=== PATIENT | female | born 1955 | race Two or more races ===

== ENCOUNTER 2022-07-07 11:42 | Emergency (ER) | payer OTHER, MEDICAID ==
[~2022-07-07] VITALS: Ht 157.5 cm; Wt 74.1 kg
[2022-07-07] MEDS ORDERED: DexAMETHasone SOD PHOS 10MG/1ML VIAL INJ IV ONE (12:00)
[2022-07-07] MEDS ORDERED: LEVALBUTEROL HCL 1.25 MG/3 ML NEB NEB SCH (12:00)
[2022-07-07 12:11] LABS: Basophils # (auto) 0.1 10 ^3/uL (0-0.2); Basophils % (auto) 0.9 % (0.0-2.0); Eosinophils # (auto) 0.4 10 ^3/uL (0-0.8); Eosinophils % (auto) 6.3 % (0.0-7.0); Hematocrit 35.8 % (36.0-46.0); Hemoglobin 12.1 g/dL (12.2-16.2); Lymphocytes # (auto) 1.6 10 ^3/uL (0.4-5.4); Lymphocytes % (auto) 28.4 % (10.0-50.0); Mean Corpuscular Hemoglobin 30.5 pg (28.0-32.0); Mean Corpuscular Hgb Conc. 33.7 g/dL (32.0-36.0); Mean Corpuscular Volume 90.4 fL (80.0-100.0); Monocytes # (auto) 0.4 10 ^3/uL (0-1.3); Monocytes % (auto) 6.3 % (0.0-12.0); Neutrophils # (auto) 3.3 10 ^3/uL (1.6-8.6); Neutrophils % (auto) 58.1 % (37.0-80.0); Red Blood Cells 3.96 10^6/uL (4.0-5.20); Red Cell Distribution Width 13.4 % (11.8-14.3); White Blood Cell 5.7 10^3/uL (4.4-10.8)
[2022-07-07 12:41] LABS: Albumin 4.1 g/dL (3.4-5.0); Calcium 9.7 mg/dL (8.5-10.1)
[2022-07-07 12:48] LABS: BUN/Creatinine Ratio 18.9; Bilirubin, Total 0.3 mg/dL (0.2-1.0)
[2022-07-07] MEDS ORDERED: FUROSEMIDE 40 MG/4 ML VIAL IV ONE (13:00)
[2022-07-07] MEDS ORDERED: BUMEX2MG PO (16:39)
[2022-07-07 18:30] VITALS: BP 123/57
[2022-07-07] MEDS ORDERED: FUROSEMIDE 20 MG TAB PO ONE (18:45)
== END 2022-07-07 18:53 | disposition home or self-care (01) ==
LOC: ER 11:42
DX: I50.9 Heart failure, unspecified (principal); J44.9 Chronic obstructive pulmonary disease, unspecified; E11.9 Type 2 diabetes mellitus without complications; Z20.822 Contact with and (suspected) exposure to COVID-19
CPT/HCPCS: 36415; 71045; 80053; 83605; 83880; 84484; 85025; 85379; 87040; 87426; 87804; 93005

== ENCOUNTER → 2022-07-12 | Outpatient (CLI) | payer OTHER, MEDICAID ==
[~2022-07-12] MED LIST: BUMEX2MG PO
[2022-07-12 16:45] LABS: Anion Gap 5 (5-15); BUN/Creatinine Ratio 25.1; Blood Urea Nitrogen 43 mg/dL (7-18); Calcium 9.7 mg/dL (8.5-10.1); Carbon Dioxide 23 mmol/L (21-32); Chloride 110 mmol/L (98-107); GFR African American 38 mL/min; GFR Non-African American 32 mL/min; Glucose 130 mg/dL (74-106); Sodium 138 mmol/L (136-145)
== END | disposition home or self-care (01) ==
LOC: LAB 16:02
PROVIDERS: ATTEND Internal Medicine
DX: I50.22 Chronic systolic (congestive) heart failure (principal)
CPT/HCPCS: 36415; 80048

== ENCOUNTER → 2022-07-28 | Outpatient (CLI) | payer OTHER, MEDICAID ==
[2022-07-28 10:40] LABS: BUN/Creatinine Ratio 20.3 (10.0-20.0); Calcium 9.4 mg/dL (8.5-10.1); Potassium 3.7 mmol/L (3.5-5.1)
== END | disposition home or self-care (01) ==
LOC: LAB 08:45
PROVIDERS: ATTEND Internal Medicine
DX: E11.22 Type 2 diabetes mellitus with diabetic chronic kidney disease (principal); N18.4 Chronic kidney disease, stage 4 (severe)
CPT/HCPCS: 36415; 80048

== ENCOUNTER → 2022-09-22 | Outpatient (CLI) | payer OTHER, MEDICAID ==
[~2022-09-22] MED LIST changes: +ALBUTEROL SULF 2.5 MG/0.5ML(0.5%) NEB SOLN ONE; +LEVALBUTEROL HCL 1.25 MG/3 ML NEB ONE
== END | disposition home or self-care (01) ==
LOC: RT 11:46
PROVIDERS: ATTEND Internal Medicine Pulmonary Disease
DX: J45.40 Moderate persistent asthma, uncomplicated (principal); R06.00 Dyspnea, unspecified; R06.09 Other forms of dyspnea
CPT/HCPCS: 94060; 94727; 94729; J7612

== ENCOUNTER → 2022-09-24 | Outpatient (CLI) | payer OTHER, MEDICAID ==
[~2022-09-24] MED LIST changes: -ALBUTEROL SULF 2.5 MG/0.5ML(0.5%) NEB SOLN ONE; -LEVALBUTEROL HCL 1.25 MG/3 ML NEB ONE
[2022-09-24 11:58] LABS: BUN/Creatinine Ratio 20.3 (10.0-20.0); Calcium 9.4 mg/dL (8.5-10.1); Potassium 4.1 mmol/L (3.5-5.1)
== END | disposition home or self-care (01) ==
LOC: LAB 09:53
DX: I13.0 Hypertensive heart and chronic kidney disease with heart failure and stage 1 through stage 4 chronic kidney disease, or unspecified chronic kidney disease (principal); I50.9 Heart failure, unspecified; N18.4 Chronic kidney disease, stage 4 (severe)
CPT/HCPCS: 36415; 80048

== ENCOUNTER → 2022-10-27 | Outpatient (CLI) | payer OTHER, MEDICAID ==
[2022-10-27 11:02] LABS: Basophils # (auto) 0 10 ^3/uL (0-0.2); Basophils % (auto) 0.7 % (0.0-2.0); Eosinophils # (auto) 0.2 10 ^3/uL (0-0.8); Eosinophils % (auto) 4.3 % (0.0-7.0); Hematocrit 37.4 % (36.0-46.0); Hemoglobin 12.5 g/dL (12.2-16.2); Lymphocytes # (auto) 1.8 10 ^3/uL (0.4-5.4); Lymphocytes % (auto) 34.5 % (10.0-50.0); Mean Corpuscular Hemoglobin 29.3 pg (28.0-32.0); Mean Corpuscular Hgb Conc. 33.4 g/dL (32.0-36.0); Mean Corpuscular Volume 87.5 fL (80.0-100.0); Monocytes # (auto) 0.4 10 ^3/uL (0-1.3); Monocytes % (auto) 8.3 % (0.0-12.0); Neutrophils # (auto) 2.7 10 ^3/uL (1.6-8.6); Neutrophils % (auto) 52.2 % (37.0-80.0); Nucleated Red Blood Cells % 0.1 %; Red Blood Cells 4.28 10^6/uL (4.0-5.20); Red Cell Distribution Width 13.2 % (11.8-14.3); White Blood Cell 5.1 10^3/uL (4.4-10.8)
[2022-10-27 11:31] LABS: Albumin 4.1 g/dL (3.4-5.0); BUN/Creatinine Ratio 22.4 (10.0-20.0); Bilirubin, Total 0.3 mg/dL (0.2-1.0); Calcium 9.4 mg/dL (8.5-10.1); Total Protein 7.5 g/dL (6.4-8.2)
== END | disposition home or self-care (01) ==
LOC: LAB 10:37
PROVIDERS: ATTEND Internal Medicine
DX: I13.0 Hypertensive heart and chronic kidney disease with heart failure and stage 1 through stage 4 chronic kidney disease, or unspecified chronic kidney disease (principal); E11.22 Type 2 diabetes mellitus with diabetic chronic kidney disease; I50.32 Chronic diastolic (congestive) heart failure; N18.32 Chronic kidney disease, stage 3b
CPT/HCPCS: 36415; 80053; 85025

== ENCOUNTER 2022-12-05 08:43 | Emergency (ER) | payer OTHER, MEDICAID ==
[~2022-12-05] VITALS: Ht 157.5 cm; Wt 68.0 kg
[2022-12-05] MEDS ORDERED: KETOROLAC TROMETH 60MG/2ML VIAL IM ONE (11:00)
[2022-12-05 12:40] VITALS: BP 126/57; PULSE 88; RESP 18; TEMP 98.5; O2SAT 99
== END 2022-12-05 12:43 | disposition home or self-care (01) ==
LOC: ER 08:43
DX: M54.31 Sciatica, right side (principal); E11.9 Type 2 diabetes mellitus without complications; E78.5 Hyperlipidemia, unspecified; Z88.5 Allergy status to narcotic agent; Z88.0 Allergy status to penicillin; Z88.2 Allergy status to sulfonamides; Z88.4 Allergy status to anesthetic agent; Z91.012 Allergy to eggs; J45.909 Unspecified asthma, uncomplicated; Z98.890 Other specified postprocedural states
CPT/HCPCS: 72131; 93005; 93971; 96372; 99285; J1885

== ENCOUNTER 2022-12-20 09:19 | Inpatient (IN) | payer OTHER, MEDICAID ==
[~2022-12-20] VITALS: Ht 165.1 cm; Wt 71.4 kg
[2022-12-20] MEDS ORDERED: SODIUM CHLORIDE 0.9% 1,000 ML IV ONE (09:45)
[2022-12-20 10:33] LABS: Basophils # (auto) 0 10 ^3/uL (0-0.2); Basophils % (auto) 0.7 % (0.0-2.0); Eosinophils # (auto) 0.2 10 ^3/uL (0-0.8); Eosinophils % (auto) 3.3 % (0.0-7.0); Hematocrit 35.4 % (36.0-46.0); Hemoglobin 11.6 g/dL (12.2-16.2); Lymphocytes # (auto) 1.6 10 ^3/uL (0.4-5.4); Mean Corpuscular Hemoglobin 29.3 pg (28.0-32.0); Mean Corpuscular Hgb Conc. 32.9 g/dL (32.0-36.0); Mean Corpuscular Volume 88.9 fL (80.0-100.0); Monocytes # (auto) 0.4 10 ^3/uL (0-1.3); Monocytes % (auto) 7.8 % (0.0-12.0); Neutrophils # (auto) 2.8 10 ^3/uL (1.6-8.6); Neutrophils % (auto) 56.2 % (37.0-80.0); Red Blood Cells 3.98 10^6/uL (4.0-5.20); Red Cell Distribution Width 13.9 % (11.8-14.3)
[2022-12-20 11:53] LABS: Albumin 3.6 g/dL (3.4-5.0); BUN/Creatinine Ratio 16.1 (10.0-20.0); Calcium 9.6 mg/dL (8.5-10.1); Potassium 4.2 mmol/L (3.5-5.1)
[2022-12-20 12:13] LABS: Bilirubin, Total 0.2 mg/dL (0.2-1.0); Total Protein 6.7 g/dL (6.4-8.2)
[2022-12-20] MEDS ORDERED: GABAPENTIN 300 MG CAP PO ONE (13:30)
[2022-12-20] MEDS ORDERED: ACETAMINOPHEN 500 MG TAB PO ONE (13:30)
[2022-12-20] MEDS ORDERED: PANCREATIC ENZYMES 4200 UNIT CAP PO ONE (13:30)
[2022-12-20] MEDS ORDERED: ENOXAPARIN SOD 80 MG/0.8ML SYRINGE SC ONE (14:15)
[2022-12-20 15:15] LABS: Urine Bacteria NONE SEEN /hpf (None Seen); Urine Blood Negative /uL (Negative); Urine Clarity Clear (Clear); Urine Color Colorless (Yellow); Urine Protein, UAD Negative (Negative); Urine Specific Gravity 1.007 (1.001-1.035); Urine Urobilinogen Normal (Negative); Urine WBC <1 /hpf (0 - 5)
[2022-12-20] MEDS ORDERED: HYDROcodone-ACET 5/325MG TAB PO PRN (16:00)
[2022-12-20] MEDS ORDERED: DOCUSATE SOD 100 MG CAP PO PRN (16:00)
[2022-12-20] MEDS ORDERED: NITROGLYCERIN 0.4 MG SL TAB SL PRN (16:00)
[2022-12-20] MEDS ORDERED: ONDANSETRON HCL 4 MG/2 ML VIAL IV PRN (16:00)
[2022-12-20] MEDS ORDERED: MORPHINE SULFATE INJ 2 MG/ml SYRG IV PRN (16:00)
[2022-12-20] MEDS ORDERED: FENO134C19 PO (16:07)
[2022-12-20] MEDS ORDERED: TORS20TA19 PO (16:07)
[2022-12-20] MEDS ORDERED: ATOG60TA PO (16:07)
[2022-12-20] MEDS ORDERED: FOLI-119 PO (16:07)
[2022-12-20] MEDS ORDERED: VENL150C58 PO (16:07)
[2022-12-20] MEDS ORDERED: HYDR200T36 PO (16:07)
[2022-12-20] MEDS ORDERED: DONE5TAB80 PO (16:07)
[2022-12-20] MEDS ORDERED: MONT-8 PO (16:07)
[2022-12-20] MEDS ORDERED: LEVE500T3 PO (16:07)
[2022-12-20] MEDS ORDERED: FEBU40TA3 PO (16:07)
[2022-12-20] MEDS ORDERED: PANC3600 PO (16:07)
[2022-12-20 18:00] VITALS: PULSE 78; RESP 18; O2SAT 97
[2022-12-20] MEDS: PANCREATIC ENZYMES 4200 UNIT CAP PO SCH (18:00)
[2022-12-20 19:24] VITALS: PULSE 79; RESP 14; O2SAT 95
[2022-12-20] MEDS ORDERED: DEXTROSE (50%) 50ML SYRG IV PRN (19:45)
[2022-12-20] MEDS ORDERED: ALBUTEROL SULF 2.5 MG/0.5ML(0.5%) NEB SOLN NEB PRN (21:15)
[2022-12-20] MEDS ORDERED: IPRATROPIUM BROM 0.5 MG/2.5ML INH SOL NEB PRN (21:15)
[2022-12-20 21:44] VITALS: BP 113/44; PULSE 79; RESP 14; TEMP 97.5; O2SAT 95
[2022-12-20] MEDS ORDERED: InsuLIN REG 1unit/0.01ml Soln (100units/ml) SC SCH (22:00)
[2022-12-20 22:10] VITALS: O2SAT 95
[2022-12-20] MEDS: SODIUM CHLOR 0.9% PF (SALINE LOCK) 10ML VIAL/SYR IV SCH (22:21)
[2022-12-20] MEDS: ACCU-CHEK COMFORT CURVE STRIP VI SCH (22:25)
[2022-12-20] MEDS: levETIRAcetam 500 MG TAB PO SCH (22:31)
[2022-12-21] MEDS: ACETAMINOPHEN 325 MG TAB PO PRN ×2 (01:12→11:07)
[2022-12-21] MEDS ORDERED: GABAPENTIN 300 MG CAP PO ONE (01:45)
[2022-12-21 05:57] LABS: Basophils # (auto) 0 10 ^3/uL (0-0.2); Basophils % (auto) 0.8 % (0.0-2.0); Eosinophils # (auto) 0.2 10 ^3/uL (0-0.8); Eosinophils % (auto) 3.6 % (0.0-7.0); Hematocrit 34.9 % (36.0-46.0); Hemoglobin 11.4 g/dL (12.2-16.2); Lymphocytes # (auto) 1.2 10 ^3/uL (0.4-5.4); Lymphocytes % (auto) 23.3 % (10.0-50.0); Mean Corpuscular Hemoglobin 29.4 pg (28.0-32.0); Mean Corpuscular Hgb Conc. 32.7 g/dL (32.0-36.0); Mean Corpuscular Volume 89.9 fL (80.0-100.0); Monocytes # (auto) 0.4 10 ^3/uL (0-1.3); Monocytes % (auto) 7.6 % (0.0-12.0); Neutrophils # (auto) 3.4 10 ^3/uL (1.6-8.6); Neutrophils % (auto) 64.7 % (37.0-80.0); Nucleated Red Blood Cells % 0.1 %; Red Blood Cells 3.88 10^6/uL (4.0-5.20); White Blood Cell 5.3 10^3/uL (4.4-10.8)
[2022-12-21 06:18] LABS: Albumin 3.3 g/dL (3.4-5.0); BUN/Creatinine Ratio 16.2 (10.0-20.0); Calcium 8.9 mg/dL (8.5-10.1)
[2022-12-21 06:24] LABS: Bilirubin, Total 0.3 mg/dL (0.2-1.0); Total Protein 6.2 g/dL (6.4-8.2)
[2022-12-21] MEDS: SODIUM CHLOR 0.9% PF (SALINE LOCK) 10ML VIAL/SYR IV SCH ×2 (06:29→14:00)
[2022-12-21] MEDS: ACCU-CHEK COMFORT CURVE STRIP VI SCH ×2 (06:33→11:30)
[2022-12-21] MEDS: InsuLIN REG 1unit/0.01ml Soln (100units/ml) SC SCH ×2 (07:00→11:30)
[2022-12-21 07:20] VITALS: PULSE 84; RESP 12; O2SAT 98
[2022-12-21 08:56] VITALS: BP 138/62; PULSE 79; RESP 20; TEMP 98.1; O2SAT 99
[2022-12-21 09:00] VITALS: BP 138/62; PULSE 76; RESP 18; TEMP 98.1; O2SAT 97; O2SAT 98
[2022-12-21] MEDS ORDERED: ADENOSINE 61 MG in GIVE UN-DILUTED 0 ML IV STA ×2 (09:05→11:55)
[2022-12-21 10:00] VITALS: O2SAT 98
[2022-12-21] MEDS ORDERED: hydrOXYchloroQUINE SULFATE 200 MG TAB PO SCH (10:00)
[2022-12-21] MEDS ORDERED: FOLIC ACID 1 MG TAB PO SCH (10:00)
[2022-12-21] MEDS: levETIRAcetam 500 MG TAB PO SCH ×2 (10:00→11:07)
[2022-12-21] MEDS ORDERED: TORSEMIDE 20 MG TAB PO SCH (10:00)
[2022-12-21] MEDS ORDERED: VENLAFAXINE HCL 37.5mg XR cap PO SCH (10:00)
[2022-12-21] MEDS ORDERED: MONTELUKAST SODIUM 10 MG TAB PO SCH (10:00)
[2022-12-21] MEDS ORDERED: DONEPEZIL HYDROCHLORIDE 5 MG TAB PO SCH ×2 (10:00→22:00)
[2022-12-21] MEDS: PANCREATIC ENZYMES 4200 UNIT CAP PO SCH ×2 (11:07→13:24)
[2022-12-21] MEDS ORDERED: GABAPENTIN 300 MG CAP PO SCH (12:00)
[2022-12-21] MEDS ORDERED: ATOG60TA PO (12:20)
[2022-12-21] MEDS ORDERED: EZET10TA22 PO (12:20)
[2022-12-21] MEDS ORDERED: PANC3600 OR (12:20)
[2022-12-21 13:00] VITALS: BP 118/55; PULSE 83; RESP 18; TEMP 98.1; O2SAT 98
[2022-12-21 13:32] VITALS: BP 138/62; PULSE 76; RESP 20; TEMP 98.1; O2SAT 97
== END 2022-12-21 15:30 | disposition home or self-care (01) | DRG 281 ==
LOC: ER 09:19 → EDBD 09:19 → TELE 16:07 → TELE-CENTR 12-21 08:10
PROVIDERS: ADMIT Internal Medicine; ATTEND Internal Medicine
DX: I21.4 Non-ST elevation (NSTEMI) myocardial infarction (principal); N17.9 Acute kidney failure, unspecified; N39.0 Urinary tract infection, site not specified; D64.9 Anemia, unspecified; E78.5 Hyperlipidemia, unspecified; J44.9 Chronic obstructive pulmonary disease, unspecified; M10.9 Gout, unspecified; I12.9 Hypertensive chronic kidney disease with stage 1 through stage 4 chronic kidney disease, or unspecified chronic kidney disease; E11.22 Type 2 diabetes mellitus with diabetic chronic kidney disease; N18.31 Chronic kidney disease, stage 3a; E66.9 Obesity, unspecified; Z82.49 Family history of ischemic heart disease and other diseases of the circulatory system; Z83.3 Family history of diabetes mellitus; Z88.0 Allergy status to penicillin; Z91.012 Allergy to eggs; Z88.2 Allergy status to sulfonamides; Z88.8 Allergy status to other drugs, medicaments and biological substances; Z68.26 Body mass index [BMI] 26.0-26.9, adult
CPT/HCPCS: 36415; 70450; 71045; 78452; 80053; 80061; 81001; 82306; 82607; 82962; 83036; 83735; 84443; 84484; 85025; 87040; 87081; 93005; 93017; G0378; J0153; J1815

== ENCOUNTER 2023-01-06 14:44 | Emergency (ER) | payer OTHER, MEDICAID ==
[~2023-01-06] VITALS: Ht 157.5 cm; Wt 72.7 kg
[~2023-01-06 14:44] MED LIST changes: +ATOG60TA PO; -BUMEX2MG PO; +DONE5TAB80 PO; +EZET10TA22 PO; +FEBU40TA3 PO; +FENO134C19 PO; +FOLI-119 PO; +HYDR200T36 PO; +LEVE500T3 PO; +MONT-8 PO; +PANC3600 OR; +PANC3600 PO; +TORS20TA19 PO; +VENL150C58 PO
[2023-01-06 16:03] LABS: Basophils # (auto) 0 10 ^3/uL (0-0.2); Basophils % (auto) 0.7 % (0.0-2.0); Eosinophils # (auto) 0.2 10 ^3/uL (0-0.8); Eosinophils % (auto) 3.8 % (0.0-7.0); Hematocrit 38.4 % (36.0-46.0); Hemoglobin 12.5 g/dL (12.2-16.2); Lymphocytes # (auto) 1.8 10 ^3/uL (0.4-5.4); Lymphocytes % (auto) 27.2 % (10.0-50.0); Mean Corpuscular Hemoglobin 29.1 pg (28.0-32.0); Mean Corpuscular Hgb Conc. 32.6 g/dL (32.0-36.0); Mean Corpuscular Volume 89.2 fL (80.0-100.0); Monocytes # (auto) 0.4 10 ^3/uL (0-1.3); Monocytes % (auto) 5.9 % (0.0-12.0); Neutrophils # (auto) 4.1 10 ^3/uL (1.6-8.6); Neutrophils % (auto) 62.4 % (37.0-80.0); Nucleated Red Blood Cells % 0.1 %; Red Blood Cells 4.31 10^6/uL (4.0-5.20); Red Cell Distribution Width 13.9 % (11.8-14.3); White Blood Cell 6.5 10^3/uL (4.4-10.8)
[2023-01-06] MEDS ORDERED: ALBUTEROL SULF 2.5 MG/0.5ML(0.5%) NEB SOLN NEB ONE (16:15)
[2023-01-06] MEDS: IPRATROPIUM BROM 0.5 MG/2.5ML INH SOL NEB ONE ×2 (16:21→16:23)
[2023-01-06 16:22] LABS: Alanine Aminotransferase 19 U/L (7-40); Albumin 4.2 g/dL (3.2-4.8); Alkaline Phosphatase 61 U/L (46-116); Anion Gap 7.4 (5-15); Aspartate Aminotransferase 17 U/L (13-40); BUN/Creatinine Ratio 20.4 (10.0-20.0); Blood Urea Nitrogen 31 mg/dL (9-23); Calcium 9.7 mg/dL (8.5-10.1); Carbon Dioxide 22.6 mmol/L (20-30); Chloride 110 mmol/L (98-107); Glucose 121 mg/dL (74-106); Potassium 4.7 mmol/L (3.5-5.1); Sodium 140 mmol/L (136-145)
[2023-01-06 16:23] LABS: Bilirubin, Total 0.3 mg/dL (0.2-1.0); Total Protein 6.6 g/dL (5.7-8.2)
[2023-01-06] MEDS ORDERED: IPRIH INH (19:00)
[2023-01-06] MEDS ORDERED: PRED20TA2 PO (19:00)
[2023-01-06 19:12] VITALS: BP 143/67; PULSE 98; RESP 17; TEMP 97; O2SAT 97
== END 2023-01-06 19:14 | disposition home or self-care (01) ==
LOC: ER 14:44
DX: J44.1 Chronic obstructive pulmonary disease with (acute) exacerbation (principal); M10.9 Gout, unspecified; Z88.0 Allergy status to penicillin; Z88.6 Allergy status to analgesic agent; Z88.8 Allergy status to other drugs, medicaments and biological substances; Z91.012 Allergy to eggs; Z79.899 Other long term (current) drug therapy
CPT/HCPCS: 36415; 71046; 80053; 84484; 85025; 94640; 99284; J7644

== ENCOUNTER 2023-01-17 11:43 | Inpatient (IN) | payer OTHER, MEDICAID ==
[~2023-01-17] VITALS: Ht 165.1 cm; Wt 71.0 kg
[2023-01-17] MEDS: FUROSEMIDE 40 MG/4 ML VIAL IV ONE (04:50)
[2023-01-17] MEDS: levETIRAcetam 500 MG TAB PO SCH (04:55)
[~2023-01-17 11:43] MED LIST changes: +IPRIH INH; +PRED20TA2 PO
[2023-01-17 13:21] LABS: Basophils # (auto) 0 10 ^3/uL (0-0.2); Basophils % (auto) 0.6 % (0.0-2.0); Eosinophils # (auto) 0.2 10 ^3/uL (0-0.8); Eosinophils % (auto) 3.9 % (0.0-7.0); Hematocrit 35.6 % (36.0-46.0); Hemoglobin 11.8 g/dL (12.2-16.2); Lymphocytes # (auto) 1.3 10 ^3/uL (0.4-5.4); Lymphocytes % (auto) 23.1 % (10.0-50.0); Mean Corpuscular Hemoglobin 29.5 pg (28.0-32.0); Mean Corpuscular Hgb Conc. 33.2 g/dL (32.0-36.0); Mean Corpuscular Volume 88.8 fL (80.0-100.0); Monocytes # (auto) 0.4 10 ^3/uL (0-1.3); Monocytes % (auto) 7.4 % (0.0-12.0); Neutrophils # (auto) 3.7 10 ^3/uL (1.6-8.6); Nucleated Red Blood Cells % 0.1 %; Red Blood Cells 4.01 10^6/uL (4.0-5.20); Red Cell Distribution Width 14.1 % (11.8-14.3); White Blood Cell 5.7 10^3/uL (4.4-10.8)
[2023-01-17 13:47] LABS: Alanine Aminotransferase 32 U/L (7-40); Albumin 4.1 g/dL (3.2-4.8); Alkaline Phosphatase 58 U/L (46-116); Anion Gap 8.7 (5-15); Aspartate Aminotransferase 29 U/L (13-40); BUN/Creatinine Ratio 22.6 (10.0-20.0); Blood Urea Nitrogen 48 mg/dL (9-23); Calcium 9.8 mg/dL (8.5-10.1); Carbon Dioxide 25.3 mmol/L (20-30); Chloride 103 mmol/L (98-107); Glucose 120 mg/dL (74-106); Potassium 4.3 mmol/L (3.5-5.1); Sodium 137 mmol/L (136-145)
[2023-01-17 13:48] LABS: Bilirubin, Total 0.3 mg/dL (0.2-1.0); Total Protein 6.5 g/dL (5.7-8.2)
[2023-01-17 15:44] LABS: COVID19 ANTIGEN SOFIA FIA NEGATIVE (NEGATIVE)
[2023-01-17] MEDS ORDERED: NITROGLYCERIN 0.4 MG SL TAB SL PRN (21:15)
[2023-01-17] MEDS ORDERED: MORPHINE SULFATE INJ 2 MG/ml SYRG IV PRN (21:15)
[2023-01-17] MEDS ORDERED: ACETAMINOPHEN 325 MG TAB PO ONE (21:15)
[2023-01-17] MEDS ORDERED: VENL75CA78 PO (21:28)
[2023-01-17] MEDS ORDERED: GABA-1250 PO (21:28)
[2023-01-17] MEDS ORDERED: guaiFENesin-DM 100/10mg/5ml SYR PO PRN (21:45)
[2023-01-18] VITALS (11 sets, daily range): BP systolic 122; BP diastolic 72; PULSE 83–93; RESP 8–21; TEMP 98; O2SAT 96–100
[2023-01-18] MEDS: GABAPENTIN 300 MG CAP PO SCH ×3 (04:54→22:05)
[2023-01-18] MEDS: FUROSEMIDE 40 MG/4 ML VIAL IV ONE (04:54)
[2023-01-18] MEDS: ATORVASTATIN 20 MG TAB PO SCH ×2 (04:55→22:05)
[2023-01-18] MEDS ORDERED: ALBUTEROL SULF 2.5 MG/0.5ML(0.5%) NEB SOLN NEB SCH (06:00)
[2023-01-18] MEDS: IPRATROPIUM BROM 0.5 MG/2.5ML INH SOL NEB SCH ×3 (06:19→18:20)
[2023-01-18] MEDS ORDERED: PATIENTS OWN MEDICATION (Venlafaxine Hcl (Venlafaxine Hcl Er) 1 CAP) PO SCH (07:00)
[2023-01-18 07:34] LABS: Basophils # (auto) 0 10 ^3/uL (0-0.2); Basophils % (auto) 0.6 % (0.0-2.0); Eosinophils # (auto) 0.3 10 ^3/uL (0-0.8); Eosinophils % (auto) 4.1 % (0.0-7.0); Hemoglobin 12.6 g/dL (12.2-16.2); Lymphocytes # (auto) 1.6 10 ^3/uL (0.4-5.4); Lymphocytes % (auto) 21.7 % (10.0-50.0); Mean Corpuscular Hemoglobin 30.1 pg (28.0-32.0); Mean Corpuscular Hgb Conc. 33.2 g/dL (32.0-36.0); Mean Corpuscular Volume 90.7 fL (80.0-100.0); Monocytes # (auto) 0.7 10 ^3/uL (0-1.3); Monocytes % (auto) 9.6 % (0.0-12.0); Neutrophils # (auto) 4.6 10 ^3/uL (1.6-8.6); Nucleated Red Blood Cells % 0.1 %; Red Blood Cells 4.18 10^6/uL (4.0-5.20); Red Cell Distribution Width 14.2 % (11.8-14.3); White Blood Cell 7.2 10^3/uL (4.4-10.8)
[2023-01-18 07:44] LABS: Alanine Aminotransferase 31 U/L (7-40); Albumin 4.2 g/dL (3.2-4.8); Alkaline Phosphatase 58 U/L (46-116); Anion Gap 12.8 (5-15); Aspartate Aminotransferase 41 U/L (13-40); Bilirubin, Total 0.4 mg/dL (0.2-1.0); Carbon Dioxide 20.2 mmol/L (20-30); Chloride 105 mmol/L (98-107); Glucose 113 mg/dL (74-106); Potassium 3.7 mmol/L (3.5-5.1); Sodium 138 mmol/L (136-145)
[2023-01-18 07:45] LABS: Blood Urea Nitrogen 28 mg/dL (9-23)
[2023-01-18] MEDS: FEBUXOSTAT 40 MG PO SCH (10:00)
[2023-01-18] MEDS ORDERED: FENOFIBRATE PO SCH (10:00)
[2023-01-18] MEDS: levETIRAcetam 500 MG TAB PO SCH (10:00)
[2023-01-18] MEDS: FENOFIBRATE 134 MG PO SCH (10:00)
[2023-01-18] MEDS ORDERED: FUROSEMIDE 20 MG/2 ML VIAL IV SCH (10:00)
[2023-01-18] MEDS ORDERED: DONEPEZIL HYDROCHLORIDE 5 MG TAB PO SCH (10:00)
[2023-01-18] MEDS ORDERED: PATIENTS OWN MEDICATION (Folic Acid 1 TAB) PO SCH (10:00)
[2023-01-18] MEDS: METHOCARBAMOL 500 MG TAB PO PRN ×2 (10:02→22:05)
[2023-01-18] MEDS: PANTOPRAZOLE 40 MG TAB PO SCH (10:02)
[2023-01-18] MEDS: MONTELUKAST SODIUM 10 MG TAB PO SCH (10:02)
[2023-01-18] MEDS: hydrOXYchloroQUINE SULFATE 200 MG TAB PO SCH (10:03)
[2023-01-18] MEDS: FOLIC ACID 1 MG TAB PO SCH (10:03)
[2023-01-18] MEDS: CREON 36000 UNIT PO SCH ×3 (12:00→21:29)
[2023-01-18] MEDS ORDERED: FURO20TA3 PO (15:34)
[2023-01-18] MEDS ORDERED: POTA10TA51 PO (15:34)
[2023-01-18] MEDS ORDERED: ATOR40TA52 PO (15:34)
[2023-01-18] MEDS ORDERED: ASPI-325 PO (15:55)
[2023-01-18 21:24] LABS: Basophils # (auto) 0 10 ^3/uL (0-0.2); Basophils % (auto) 0.5 % (0.0-2.0); Eosinophils # (auto) 0.3 10 ^3/uL (0-0.8); Eosinophils % (auto) 2.7 % (0.0-7.0); Hematocrit 38.8 % (36.0-46.0); Hemoglobin 13.2 g/dL (12.2-16.2); Lymphocytes # (auto) 1.6 10 ^3/uL (0.4-5.4); Lymphocytes % (auto) 17.6 % (10.0-50.0); Mean Corpuscular Hemoglobin 29.9 pg (28.0-32.0); Mean Corpuscular Hgb Conc. 33.9 g/dL (32.0-36.0); Mean Corpuscular Volume 88.4 fL (80.0-100.0); Monocytes # (auto) 0.7 10 ^3/uL (0-1.3); Monocytes % (auto) 8.1 % (0.0-12.0); Neutrophils # (auto) 6.5 10 ^3/uL (1.6-8.6); Neutrophils % (auto) 71.1 % (37.0-80.0); Red Blood Cells 4.39 10^6/uL (4.0-5.20); Red Cell Distribution Width 13.9 % (11.8-14.3); White Blood Cell 9.1 10^3/uL (4.4-10.8)
[2023-01-18] MEDS ORDERED: LORA-1123 PO (21:27)
[2023-01-18] MEDS ORDERED: METH-1181 PO (21:27)
[2023-01-18] MEDS ORDERED: AMIT25TA20 PO (21:32)
[2023-01-18 21:43] LABS: Alanine Aminotransferase 29 U/L (7-40); Albumin 4.5 g/dL (3.2-4.8); Alkaline Phosphatase 67 U/L (46-116); Anion Gap 9.9 (5-15); Aspartate Aminotransferase 35 U/L (13-40); BUN/Creatinine Ratio 18.5 (10.0-20.0); Calcium 10.2 mg/dL (8.7-10.4); Carbon Dioxide 23.1 mmol/L (20-30); Chloride 103 mmol/L (98-107); Glucose 193 mg/dL (74-106); Potassium 3.8 mmol/L (3.5-5.1); Sodium 136 mmol/L (136-145)
[2023-01-18 21:44] LABS: Bilirubin, Total 0.3 mg/dL (0.2-1.0); Total Protein 7.3 g/dL (5.7-8.2)
[2023-01-18 21:49] LABS: Blood Urea Nitrogen 43 mg/dL (9-23)
[2023-01-18] MEDS ORDERED: AMITRIPTYLINE HCL 25 MG TAB PO ONE (22:00)
[2023-01-18] MEDS: ACETAMINOPHEN 325 MG TAB PO PRN (22:05)
[2023-01-19] VITALS (14 sets, daily range): BP systolic 108–119; BP diastolic 48–57; PULSE 81–110; RESP 16–20; TEMP 96.8–98.5; O2SAT 94–100
[2023-01-19] MEDS: IPRATROPIUM BROM 0.5 MG/2.5ML INH SOL NEB SCH ×3 (05:57→19:28)
[2023-01-19] MEDS: CREON 36000 UNIT PO SCH ×4 (06:00→21:05)
[2023-01-19] MEDS: GABAPENTIN 300 MG CAP PO SCH ×2 (09:07→21:07)
[2023-01-19] MEDS: MONTELUKAST SODIUM 10 MG TAB PO SCH (09:07)
[2023-01-19] MEDS: hydrOXYchloroQUINE SULFATE 200 MG TAB PO SCH (09:07)
[2023-01-19] MEDS: FOLIC ACID 1 MG TAB PO SCH (09:08)
[2023-01-19] MEDS: PANTOPRAZOLE 40 MG TAB PO SCH (09:08)
[2023-01-19] MEDS: VENLAFAXINE HCL 37.5mg XR cap PO SCH (09:08)
[2023-01-19] MEDS: FENOFIBRATE 134 MG PO SCH (09:53)
[2023-01-19] MEDS: FEBUXOSTAT 40 MG PO SCH (09:53)
[2023-01-19 10:42] LABS: Basophils # (auto) 0.1 10 ^3/uL (0-0.2); Eosinophils # (auto) 0.3 10 ^3/uL (0-0.8); Eosinophils % (auto) 5.3 % (0.0-7.0); Hematocrit 39.6 % (36.0-46.0); Hemoglobin 13.3 g/dL (12.2-16.2); Lymphocytes # (auto) 1.3 10 ^3/uL (0.4-5.4); Lymphocytes % (auto) 24.1 % (10.0-50.0); Mean Corpuscular Hemoglobin 29.6 pg (28.0-32.0); Mean Corpuscular Hgb Conc. 33.5 g/dL (32.0-36.0); Mean Corpuscular Volume 88.3 fL (80.0-100.0); Monocytes # (auto) 0.4 10 ^3/uL (0-1.3); Monocytes % (auto) 8.1 % (0.0-12.0); Neutrophils # (auto) 3.2 10 ^3/uL (1.6-8.6); Neutrophils % (auto) 61.5 % (37.0-80.0); Nucleated Red Blood Cells % 0.1 %; Red Blood Cells 4.49 10^6/uL (4.0-5.20); Red Cell Distribution Width 13.9 % (11.8-14.3); White Blood Cell 5.2 10^3/uL (4.4-10.8)
[2023-01-19 11:00] LABS: Anion Gap 6.5 (5-15); Carbon Dioxide 26.5 mmol/L (20-30); Chloride 106 mmol/L (98-107); Potassium 4.2 mmol/L (3.5-5.1); Sodium 139 mmol/L (136-145)
[2023-01-19 11:01] LABS: Calcium 10.2 mg/dL (8.5-10.1)
[2023-01-19 11:06] LABS: BUN/Creatinine Ratio 21.1 (10.0-20.0); Blood Urea Nitrogen 41 mg/dL (9-23); Glucose 154 mg/dL (74-106)
[2023-01-19 11:07] LABS: Magnesium 2.4 mg/dL (1.6-2.6)
[2023-01-19] MEDS ORDERED: DEXTROSE (50%) 50ML SYRG IV PRN (18:30)
[2023-01-19] MEDS: ATORVASTATIN 20 MG TAB PO SCH (21:07)
[2023-01-19] MEDS: ACETAMINOPHEN 325 MG TAB PO PRN (21:15)
[2023-01-19] MEDS: InsuLIN REG 1unit/0.01ml Soln (100units/ml) SC SCH (21:19)
[2023-01-19] MEDS: ACCU-CHEK COMFORT CURVE STRIP VI SCH (21:20)
[2023-01-20] VITALS (9 sets, daily range): BP systolic 106–108; BP diastolic 50–55; PULSE 76–88; RESP 17–19; TEMP 97.8–98.6; O2SAT 81–100
[2023-01-20] MEDS: ACETAMINOPHEN 325 MG TAB PO PRN ×2 (03:34→11:35)
[2023-01-20] MEDS: CREON 36000 UNIT PO SCH ×2 (06:00→12:00)
[2023-01-20] MEDS: VENLAFAXINE HCL 37.5mg XR cap PO SCH (06:15)
[2023-01-20] MEDS: ACCU-CHEK COMFORT CURVE STRIP VI SCH ×3 (06:19→17:00)
[2023-01-20] MEDS: InsuLIN REG 1unit/0.01ml Soln (100units/ml) SC SCH ×3 (06:19→17:00)
[2023-01-20 06:48] LABS: Basophils # (auto) 0.1 10 ^3/uL (0-0.2); Basophils % (auto) 1.1 % (0.0-2.0); Eosinophils # (auto) 0.4 10 ^3/uL (0-0.8); Eosinophils % (auto) 5.9 % (0.0-7.0); Hemoglobin 12.2 g/dL (12.2-16.2); Lymphocytes # (auto) 1.5 10 ^3/uL (0.4-5.4); Lymphocytes % (auto) 24.4 % (10.0-50.0); Mean Corpuscular Hemoglobin 29.8 pg (28.0-32.0); Mean Corpuscular Hgb Conc. 32.9 g/dL (32.0-36.0); Mean Corpuscular Volume 90.8 fL (80.0-100.0); Monocytes # (auto) 0.5 10 ^3/uL (0-1.3); Monocytes % (auto) 8.3 % (0.0-12.0); Neutrophils # (auto) 3.8 10 ^3/uL (1.6-8.6); Neutrophils % (auto) 60.3 % (37.0-80.0); Nucleated Red Blood Cells % 0.2 %; Red Blood Cells 4.08 10^6/uL (4.0-5.20); Red Cell Distribution Width 13.9 % (11.8-14.3); White Blood Cell 6.3 10^3/uL (4.4-10.8)
[2023-01-20 06:58] LABS: Calcium 9.9 mg/dL (8.5-10.1); Chloride 107 mmol/L (98-107); Potassium 4.2 mmol/L (3.5-5.1); Sodium 138 mmol/L (136-145)
[2023-01-20 07:04] LABS: BUN/Creatinine Ratio 17.5 (10.0-20.0); Glucose 158 mg/dL (74-106)
[2023-01-20 07:15] LABS: Blood Urea Nitrogen 29 mg/dL (9-23)
[2023-01-20] MEDS: IPRATROPIUM BROM 0.5 MG/2.5ML INH SOL NEB SCH ×2 (07:15→13:44)
[2023-01-20 07:31] LABS: Anion Gap 8 (5-15); Carbon Dioxide 23 mmol/L (20-30)
[2023-01-20] MEDS: GABAPENTIN 300 MG CAP PO SCH (08:11)
[2023-01-20] MEDS: MONTELUKAST SODIUM 10 MG TAB PO SCH (08:11)
[2023-01-20] MEDS: hydrOXYchloroQUINE SULFATE 200 MG TAB PO SCH (08:11)
[2023-01-20] MEDS: FOLIC ACID 1 MG TAB PO SCH (08:11)
[2023-01-20] MEDS: FEBUXOSTAT 40 MG PO SCH (08:30)
[2023-01-20] MEDS: FENOFIBRATE 134 MG PO SCH (08:30)
== END 2023-01-20 17:56 | disposition home or self-care (01) | DRG 190 ==
LOC: EDBD 11:43 → ER 11:43 → TELE 21:12 → TELE-WESTW 01-19 08:26
PROVIDERS: ADMIT Internal Medicine; ATTEND Student in an Organized Health Care Education/Training Program
DX: J44.1 Chronic obstructive pulmonary disease with (acute) exacerbation (principal); I21.A1 Myocardial infarction type 2; I50.41 Acute combined systolic (congestive) and diastolic (congestive) heart failure; N17.9 Acute kidney failure, unspecified; I13.0 Hypertensive heart and chronic kidney disease with heart failure and stage 1 through stage 4 chronic kidney disease, or unspecified chronic kidney disease; G47.30 Sleep apnea, unspecified; M10.9 Gout, unspecified; Z20.822 Contact with and (suspected) exposure to COVID-19; E11.22 Type 2 diabetes mellitus with diabetic chronic kidney disease; J37.0 Chronic laryngitis; M06.9 Rheumatoid arthritis, unspecified; E78.5 Hyperlipidemia, unspecified; I25.10 Atherosclerotic heart disease of native coronary artery without angina pectoris; E66.9 Obesity, unspecified; N18.32 Chronic kidney disease, stage 3b; Z79.4 Long term (current) use of insulin; Z79.82 Long term (current) use of aspirin; Z91.012 Allergy to eggs; Z88.5 Allergy status to narcotic agent; Z88.0 Allergy status to penicillin; Z88.2 Allergy status to sulfonamides; Z91.018 Allergy to other foods; Z83.3 Family history of diabetes mellitus; Z82.49 Family history of ischemic heart disease and other diseases of the circulatory system; Z82.5 Family history of asthma and other chronic lower respiratory diseases; Z82.0 Family history of epilepsy and other diseases of the nervous system; Z68.26 Body mass index [BMI] 26.0-26.9, adult
CPT/HCPCS: 36415; 70450; 71045; 71046; 80048; 80053; 82962; 83735; 83880; 84443; 84484; 85025; 85379; 87426; 93005; 94640; 97163; 99291; G0378; J1815

== ENCOUNTER → 2023-04-12 | Outpatient (CLI) | payer OTHER, MEDICAID ==
[~2023-04-12] MED LIST changes: +AMIT25TA20 PO; +GABA-1250 PO; +LORA-1123 PO; +METH-1181 PO; -PRED20TA2 PO; -TORS20TA19 PO; +VENL75CA78 PO
[2023-04-12 10:58] LABS: Basophils # (auto) 0 10 ^3/uL (0-0.2); Eosinophils # (auto) 0.3 10 ^3/uL (0-0.8); Eosinophils % (auto) 6.8 % (0.0-7.0); Hematocrit 36.7 % (36.0-46.0); Lymphocytes # (auto) 1.2 10 ^3/uL (0.4-5.4); Lymphocytes % (auto) 23.9 % (10.0-50.0); Mean Corpuscular Hemoglobin 28.5 pg (28.0-32.0); Mean Corpuscular Hgb Conc. 32.6 g/dL (32.0-36.0); Mean Corpuscular Volume 87.4 fL (80.0-100.0); Monocytes # (auto) 0.5 10 ^3/uL (0-1.3); Monocytes % (auto) 9.2 % (0.0-12.0); Neutrophils % (auto) 59.1 % (37.0-80.0); Nucleated Red Blood Cells % 0.1 %; Red Cell Distribution Width 13.4 % (11.8-14.3); White Blood Cell 5.1 10^3/uL (4.4-10.8)
[2023-04-12 11:11] LABS: Potassium 3.8 mmol/L (3.5-5.1)
[2023-04-12 11:12] LABS: Calcium 10.1 mg/dL (8.7-10.4)
[2023-04-12 11:16] LABS: Uric Acid 9.9 mg/dL (3.1-7.8); Urine Bacteria NONE SEEN /hpf (None Seen); Urine Blood Negative /uL (Negative); Urine Clarity Clear (Clear); Urine Color Yellow (Yellow); Urine Protein, UAD Negative (Negative); Urine Specific Gravity 1.017 (1.001-1.035); Urine Urobilinogen Normal (Negative); Urine WBC 2 /hpf (0 - 5); Urine pH 5.5 (5.0-8.0)
[2023-04-12 11:17] LABS: BUN/Creatinine Ratio 21.2 (10.0-20.0)
[2023-04-12 11:19] LABS: Albumin 4.5 g/dL (3.2-4.8); Phosphorus 4.1 mg/dL (2.4-5.1)
[2023-04-12 12:03] LABS: Protein, Urine 11.4 mg/dL (0.0-11.9)
[2023-04-12 12:06] LABS: Creatinine, Urine 62.6 mg/dL (30.0-125.0); Urine Protein/Creatinine Ratio 0.18
== END | disposition home or self-care (01) ==
LOC: LAB 09:56
PROVIDERS: ATTEND Internal Medicine Nephrology
DX: E21.3 Hyperparathyroidism, unspecified (principal); E56.9 Vitamin deficiency, unspecified; R80.9 Proteinuria, unspecified
CPT/HCPCS: 36415; 80069; 81001; 82306; 82570; 83970; 84156; 84550; 85025

== ENCOUNTER 2023-04-18 03:04 | Inpatient (IN) | payer OTHER, MEDICAID ==
[2023-04-18] VITALS (19 sets, daily range): BP systolic 109–142; BP diastolic 32–65; PULSE 36–58; RESP 12–20; TEMP 97.3–98.3; O2SAT 2–100
[~2023-04-18] VITALS: Ht 157.5 cm; Wt 75.9 kg
[2023-04-18] MEDS ORDERED: PANC3600 PO (05:18)
[2023-04-18] MEDS ORDERED: BACL10TA PO (05:27)
[2023-04-18] MEDS ORDERED: FEVE380C PO (05:27)
[2023-04-18] MEDS ORDERED: CLOP75TA70 PO (05:27)
[2023-04-18] MEDS ORDERED: ACET250T20 PO (05:27)
[2023-04-18] MEDS ORDERED: APIX2.5T PO (05:27)
[2023-04-18] MEDS ORDERED: TRAM50TA2 PO (05:27)
[2023-04-18] MEDS ORDERED: NITROGLYCERIN 0.4 MG SL TAB SL PRN (06:30)
[2023-04-18] MEDS ORDERED: ONDANSETRON HCL 4 MG/2 ML VIAL IV PRN (06:30)
[2023-04-18] MEDS ORDERED: DEXTROSE (50%) 50ML SYRG IV PRN (06:30)
[2023-04-18] MEDS ORDERED: DOCUSATE SOD 100 MG CAP PO PRN (06:30)
[2023-04-18] MEDS ORDERED: ACETAMINOPHEN 325 MG TAB PO PRN (06:45)
[2023-04-18] MEDS ORDERED: PANCREATIC ENZYMES 4200 UNIT CAP PO SCH (07:00)
[2023-04-18] MEDS ORDERED: PANCREATIC ENZYMES 4200 UNIT CAP PO ONE (07:00)
[2023-04-18] MEDS ORDERED: IPRATROPIUM BROM 0.5 MG/2.5ML INH SOL NEB PRN (07:30)
[2023-04-18 08:58] LABS: Basophils # (auto) 0.1 10 ^3/uL (0-0.2); Basophils % (auto) 1.1 % (0.0-2.0); Eosinophils # (auto) 0.3 10 ^3/uL (0-0.8); Eosinophils % (auto) 6.6 % (0.0-7.0); Hematocrit 35.2 % (36.0-46.0); Hemoglobin 11.4 g/dL (12.2-16.2); Lymphocytes # (auto) 1.2 10 ^3/uL (0.4-5.4); Lymphocytes % (auto) 23.8 % (10.0-50.0); Mean Corpuscular Hemoglobin 28.2 pg (28.0-32.0); Mean Corpuscular Hgb Conc. 32.3 g/dL (32.0-36.0); Mean Corpuscular Volume 87.4 fL (80.0-100.0); Monocytes # (auto) 0.4 10 ^3/uL (0-1.3); Monocytes % (auto) 7.6 % (0.0-12.0); Neutrophils # (auto) 3.2 10 ^3/uL (1.6-8.6); Neutrophils % (auto) 60.9 % (37.0-80.0); Red Blood Cells 4.03 10^6/uL (4.0-5.20); Red Cell Distribution Width 13.4 % (11.8-14.3); White Blood Cell 5.2 10^3/uL (4.4-10.8)
[2023-04-18] MEDS: BACLOFEN 10 MG TAB PO SCH ×2 (09:20→20:57)
[2023-04-18] MEDS: CLOPIDOGREL BISULFATE 75 MG TAB PO SCH (09:20)
[2023-04-18] MEDS: APIXABAN 2.5 MG TAB PO SCH ×2 (09:21→20:57)
[2023-04-18 09:22] LABS: Alanine Aminotransferase 15 U/L (7-40); Albumin 4.1 g/dL (3.2-4.8); Alkaline Phosphatase 48 U/L (46-116); Anion Gap 8 (5-15); Aspartate Aminotransferase 15 U/L (13-40); BUN/Creatinine Ratio 15.8 (10.0-20.0); Blood Urea Nitrogen 33 mg/dL (9-23); Calcium 9.6 mg/dL (8.5-10.1); Carbon Dioxide 27 mmol/L (20-30); Chloride 107 mmol/L (98-107); Glucose 75 mg/dL (74-106); Potassium 3.8 mmol/L (3.5-5.1); Sodium 142 mmol/L (136-145)
[2023-04-18 09:23] LABS: Bilirubin, Total 0.3 mg/dL (0.2-1.0); Total Protein 6.6 g/dL (5.7-8.2)
[2023-04-18] MEDS: CREON DR 36,000 UNIT CAPSULE PO SCH ×4 (09:58→20:58)
[2023-04-18] MEDS ORDERED: ASPirin 81 mg TAB PO SCH (10:00)
[2023-04-18] MEDS ORDERED: CLOPIDOGREL BISULFATE 75 MG TAB PO SCH (10:00)
[2023-04-18] MEDS ORDERED: ERGOCALCIFEROL 50,000 UNIT(1.25MG) CAP PO SCH (10:45)
[2023-04-18 12:08] LABS: INR 1.09 (0.9-1.15); Partial Thromboplastin Time 28.5 SEC (24.5-34.5); Prothrombin Time 11.4 sec (9.3-11.8)
[2023-04-18] MEDS ORDERED: IODIXANOL 320MG/ML 100ML BTL IV ONE (12:17)
[2023-04-18] MEDS ORDERED: LIDOCAINE 2%HCL (LOCAL ANESTH.) INJ 20ML MDV ONE (12:17)
[2023-04-18] MEDS ORDERED: HEPARIN SODIUM (PORCINE) 5000 UNITS/ML 1ML VIAL ONE (12:40)
[2023-04-18] MEDS ORDERED: ANGIOMAX 250 MG VIAL IV ONE (12:40)
[2023-04-18] MEDS ORDERED: VERAPAMIL 2.5MG/ML INJ 2ML VIAL IV ONE (12:41)
[2023-04-18] MEDS ORDERED: BUPIVACAINE HCL 0.25% P/F 10 ML VIAL ONE (12:41)
[2023-04-18] MEDS ORDERED: fentaNYL CITRATE 100 MCG/2 ML VL ONE (12:42)
[2023-04-18] MEDS ORDERED: MIDAZOLAM HCL 2MG/2ML 2ml VIAL (1mg/ml) ONE (12:42)
[2023-04-18] MEDS ORDERED: SODIUM CHL 0.9% 0 ML ONE (12:42)
[2023-04-18] MEDS ORDERED: SODIUM CHL 0.9% 50 ML ONE (12:47)
[2023-04-18] MEDS: SODIUM CHLOR 0.9% PF (SALINE LOCK) 10ML VIAL/SYR IV SCH ×2 (14:00→20:57)
[2023-04-18] MEDS: ACCU-CHEK COMFORT CURVE STRIP VI SCH ×2 (18:06→20:57)
[2023-04-18] MEDS ORDERED: FUROSEMIDE 20 MG/2 ML VIAL IV ONE (19:15)
[2023-04-18] MEDS: traMADol HCL 50 MG TAB PO PRN (20:46)
[2023-04-18] MEDS: AMITRIPTYLINE HCL 25 MG TAB PO SCH (20:57)
[2023-04-18] MEDS: MONTELUKAST SODIUM 10 MG TAB PO SCH (20:57)
[2023-04-18] MEDS: ATORVASTATIN 20 MG TAB PO SCH (20:57)
[2023-04-19] VITALS (9 sets, daily range): BP systolic 102–129; BP diastolic 30–73; PULSE 38–43; RESP 15–19; TEMP 97.1–98.6; O2SAT 97–100
[2023-04-19] MEDS ORDERED: DEXTROSE (50%) 50ML SYRG IV PRN (01:00)
[2023-04-19] MEDS: SODIUM CHLOR 0.9% PF (SALINE LOCK) 10ML VIAL/SYR IV SCH ×3 (06:13→22:00)
[2023-04-19] MEDS: InsuLIN REG 1unit/0.01ml Soln (100units/ml) SC SCH ×4 (06:13→22:12)
[2023-04-19] MEDS: ACCU-CHEK COMFORT CURVE STRIP VI SCH ×4 (06:13→22:00)
[2023-04-19 06:58] LABS: Basophils # (auto) 0 10 ^3/uL (0-0.2); Basophils % (auto) 0.7 % (0.0-2.0); Eosinophils # (auto) 0.4 10 ^3/uL (0-0.8); Eosinophils % (auto) 7.4 % (0.0-7.0); Hematocrit 34.8 % (36.0-46.0); Hemoglobin 11.4 g/dL (12.2-16.2); Lymphocytes # (auto) 1.1 10 ^3/uL (0.4-5.4); Lymphocytes % (auto) 22.1 % (10.0-50.0); Mean Corpuscular Hemoglobin 28.2 pg (28.0-32.0); Mean Corpuscular Hgb Conc. 32.8 g/dL (32.0-36.0); Monocytes # (auto) 0.5 10 ^3/uL (0-1.3); Monocytes % (auto) 10.2 % (0.0-12.0); Neutrophils % (auto) 59.6 % (37.0-80.0); Nucleated Red Blood Cells % 0.1 %; Red Blood Cells 4.04 10^6/uL (4.0-5.20); Red Cell Distribution Width 13.7 % (11.8-14.3)
[2023-04-19 07:17] LABS: Alanine Aminotransferase 12 U/L (7-40); Albumin 3.8 g/dL (3.2-4.8); Alkaline Phosphatase 47 U/L (46-116); Anion Gap 7 (5-15); Aspartate Aminotransferase 17 U/L (13-40); BUN/Creatinine Ratio 13.8 (10.0-20.0); Blood Urea Nitrogen 28 mg/dL (9-23); Calcium 9.3 mg/dL (8.7-10.4); Carbon Dioxide 27 mmol/L (20-30); Chloride 106 mmol/L (98-107); Glucose 93 mg/dL (74-106); Potassium 3.7 mmol/L (3.5-5.1); Sodium 140 mmol/L (136-145)
[2023-04-19 07:18] LABS: Bilirubin, Total 0.3 mg/dL (0.2-1.0); Total Protein 6.3 g/dL (5.7-8.2)
[2023-04-19 07:35] LABS: CRP High Sensitivity 0.49 mg/dL (<1.0)
[2023-04-19] MEDS: CREON DR 36,000 UNIT CAPSULE PO SCH ×4 (07:40→21:58)
[2023-04-19] MEDS: traMADol HCL 50 MG TAB PO PRN ×2 (08:04→20:15)
[2023-04-19] MEDS: FUROSEMIDE 20 MG/2 ML VIAL IV SCH (09:28)
[2023-04-19] MEDS: BACLOFEN 10 MG TAB PO SCH ×2 (09:28→21:56)
[2023-04-19] MEDS: CLOPIDOGREL BISULFATE 75 MG TAB PO SCH (09:28)
[2023-04-19] MEDS: APIXABAN 2.5 MG TAB PO SCH ×2 (09:28→21:56)
[2023-04-19] MEDS ORDERED: AMOX500T86 PO (09:35)
[2023-04-19] MEDS: ACETAMINOPHEN 325 MG TAB PO PRN (09:49)
[2023-04-19] MEDS: ATORVASTATIN 20 MG TAB PO SCH (21:56)
[2023-04-19] MEDS: MONTELUKAST SODIUM 10 MG TAB PO SCH (21:56)
[2023-04-19] MEDS: AMITRIPTYLINE HCL 25 MG TAB PO SCH (22:11)
[2023-04-20 05:00] VITALS: BP 127/46; PULSE 40; RESP 19; TEMP 98.9; O2SAT 99
[2023-04-20] MEDS: InsuLIN REG 1unit/0.01ml Soln (100units/ml) SC SCH ×3 (06:23→17:00)
[2023-04-20] MEDS: SODIUM CHLOR 0.9% PF (SALINE LOCK) 10ML VIAL/SYR IV SCH ×2 (06:24→14:00)
[2023-04-20] MEDS: ACCU-CHEK COMFORT CURVE STRIP VI SCH ×3 (06:27→17:29)
[2023-04-20] MEDS: CREON DR 36,000 UNIT CAPSULE PO SCH ×3 (06:27→19:00)
[2023-04-20 06:40] VITALS: O2SAT 97
[2023-04-20 07:25] LABS: Basophils # (auto) 0 10 ^3/uL (0-0.2); Basophils % (auto) 0.7 % (0.0-2.0); Eosinophils # (auto) 0.3 10 ^3/uL (0-0.8); Eosinophils % (auto) 6.5 % (0.0-7.0); Hematocrit 35.7 % (36.0-46.0); Hemoglobin 11.5 g/dL (12.2-16.2); Lymphocytes # (auto) 1.4 10 ^3/uL (0.4-5.4); Mean Corpuscular Hgb Conc. 32.4 g/dL (32.0-36.0); Mean Corpuscular Volume 86.4 fL (80.0-100.0); Monocytes # (auto) 0.6 10 ^3/uL (0-1.3); Monocytes % (auto) 10.6 % (0.0-12.0); Neutrophils % (auto) 55.2 % (37.0-80.0); Nucleated Red Blood Cells % 0.1 %; Red Blood Cells 4.13 10^6/uL (4.0-5.20); Red Cell Distribution Width 13.2 % (11.8-14.3); White Blood Cell 5.4 10^3/uL (4.4-10.8)
[2023-04-20 07:47] LABS: Chloride 108 mmol/L (98-107); Sodium 141 mmol/L (136-145)
[2023-04-20 07:48] LABS: Anion Gap 5 (5-15); Carbon Dioxide 28 mmol/L (20-30)
[2023-04-20 07:49] LABS: Calcium 9.9 mg/dL (8.5-10.1)
[2023-04-20 07:53] LABS: BUN/Creatinine Ratio 24.1 (10.0-20.0); Blood Urea Nitrogen 48 mg/dL (9-23); Glucose 113 mg/dL (74-106)
[2023-04-20 08:00] VITALS: PULSE 41
[2023-04-20 09:00] VITALS: BP 129/54; PULSE 42; RESP 16; TEMP 97.8; O2SAT 98
[2023-04-20] MEDS: APIXABAN 2.5 MG TAB PO SCH (09:31)
[2023-04-20] MEDS: CLOPIDOGREL BISULFATE 75 MG TAB PO SCH (09:31)
[2023-04-20] MEDS: BACLOFEN 10 MG TAB PO SCH (09:31)
[2023-04-20] MEDS: FUROSEMIDE 20 MG/2 ML VIAL IV SCH (09:39)
[2023-04-20] MEDS ORDERED: FUROSEMIDE 20 MG TAB PO SCH (10:00)
[2023-04-20] MEDS: ACETAMINOPHEN 325 MG TAB PO PRN (10:01)
[2023-04-20 13:00] VITALS: BP 125/60; PULSE 61; RESP 20; TEMP 98.1; O2SAT 94
[2023-04-20 16:36] VITALS: BP 144/82; PULSE 51; RESP 18; TEMP 97.9; O2SAT 97
== END 2023-04-20 19:07 | disposition hospice, home (50) | DRG 286 ==
LOC: TELE-WESTW 03:40
PROVIDERS: ADMIT Internal Medicine; ATTEND Internal Medicine
PROC: 4A023N7 Measurement of Cardiac Sampling and Pressure, Left Heart, Percutaneous Approach (ICD-10-PCS; principal; 2023-04-18)
PROC: B211YZZ Fluoroscopy of Multiple Coronary Arteries using Other Contrast (ICD-10-PCS; 2023-04-18)
PROC: B215YZZ Fluoroscopy of Left Heart using Other Contrast (ICD-10-PCS; 2023-04-18)
DX: I20.0 Unstable angina (principal); I50.31 Acute diastolic (congestive) heart failure; N17.9 Acute kidney failure, unspecified; I13.0 Hypertensive heart and chronic kidney disease with heart failure and stage 1 through stage 4 chronic kidney disease, or unspecified chronic kidney disease; K86.1 Other chronic pancreatitis; I44.0 Atrioventricular block, first degree; E66.9 Obesity, unspecified; E78.5 Hyperlipidemia, unspecified; R74.8 Abnormal levels of other serum enzymes; E11.22 Type 2 diabetes mellitus with diabetic chronic kidney disease; N18.9 Chronic kidney disease, unspecified; F32.A Depression, unspecified; F03.90 Unspecified dementia, unspecified severity, without behavioral disturbance, psychotic disturbance, mood disturbance, and anxiety; J44.89 Other specified chronic obstructive pulmonary disease; Z51.5 Encounter for palliative care; M06.9 Rheumatoid arthritis, unspecified; Z82.0 Family history of epilepsy and other diseases of the nervous system; Z79.4 Long term (current) use of insulin; Z68.30 Body mass index [BMI] 30.0-30.9, adult; Z82.5 Family history of asthma and other chronic lower respiratory diseases; I25.2 Old myocardial infarction; Z83.3 Family history of diabetes mellitus; Z86.73 Personal history of transient ischemic attack (TIA), and cerebral infarction without residual deficits; Z88.0 Allergy status to penicillin; Z88.6 Allergy status to analgesic agent; Z91.012 Allergy to eggs; Z88.5 Allergy status to narcotic agent; Z88.2 Allergy status to sulfonamides; Z88.8 Allergy status to other drugs, medicaments and biological substances; Z91.018 Allergy to other foods; Z95.5 Presence of coronary angioplasty implant and graft
CPT/HCPCS: 36415; 71045; 80048; 80053; 82962; 83735; 84443; 84484; 85025; 85610; 85730; 86141; 93005; 93306; 93458; 97110; 97116; 97163; 99152; 99153; G0378; J1815; J2250; J3490; Q9967

== ENCOUNTER 2024-01-31 14:22 | Emergency (ER) | payer OTHER, MEDICAID ==
[~2024-01-31] VITALS: Ht 157.5 cm; Wt 78.3 kg
[~2024-01-31 14:22] MED LIST changes: +ACET250T20 PO; +AMOX500T86 PO; +APIX2.5T PO; +BACL10TA PO; +CLOP75TA70 PO; -FEBU40TA3 PO; +FEBU40TA6 PO; +FEVE380C PO; -PANC3600 OR; +TRAM50TA2 PO; -VENL75CA78 PO
[2024-01-31 15:26] LABS: Basophils # (auto) 0.1 10 ^3/uL (0-0.2); Basophils % (auto) 0.9 % (0.0-2.0); Eosinophils # (auto) 0.2 10 ^3/uL (0-0.8); Eosinophils % (auto) 3.7 % (0.0-7.0); Hematocrit 31.9 % (36.0-46.0); Hemoglobin 10.6 g/dL (12.2-16.2); Lymphocytes % (auto) 16.3 % (10.0-50.0); Mean Corpuscular Hemoglobin 29.3 pg (28.0-32.0); Mean Corpuscular Hgb Conc. 33.2 g/dL (32.0-36.0); Mean Corpuscular Volume 88.3 fL (80.0-100.0); Monocytes # (auto) 0.4 10 ^3/uL (0-1.3); Monocytes % (auto) 6.9 % (0.0-12.0); Neutrophils # (auto) 4.6 10 ^3/uL (1.6-8.6); Neutrophils % (auto) 72.2 % (37.0-80.0); Platelet Count (auto) 309 10^3/uL (140-450); Red Blood Cells 3.61 10^6/uL (4.0-5.20); Red Cell Distribution Width 14.8 % (11.8-14.3); White Blood Cell 6.4 10^3/uL (4.4-10.8)
[2024-01-31 15:45] LABS: Alanine Aminotransferase 13 U/L (7-40); Albumin 4.3 g/dL (3.2-4.8); Alkaline Phosphatase 59 U/L (46-116); Anion Gap 6 (5-15); Aspartate Aminotransferase 9 U/L (13-40); BUN/Creatinine Ratio 21.5 (10.0-20.0); Blood Urea Nitrogen 43 mg/dL (9-23); Carbon Dioxide 27 mmol/L (20-30); Chloride 104 mmol/L (98-107); Glucose 223 mg/dL (74-106); Potassium 4.5 mmol/L (3.5-5.1); Sodium 137 mmol/L (136-145)
[2024-01-31 15:46] LABS: Bilirubin, Total 0.3 mg/dL (0.2-1.0); Total Protein 6.6 g/dL (5.7-8.2)
[2024-01-31 15:49] LABS: INR 1.05 (0.9-1.15); Partial Thromboplastin Time 25.7 SEC (24.5-34.5); Prothrombin Time 11.1 sec (9.3-11.8)
[2024-01-31 16:37] LABS: Urine Bacteria None Seen /hpf (None Seen)
[2024-01-31 16:48] LABS: Urine Blood Negative /uL (Negative); Urine Clarity Clear (Clear); Urine Color Light-Yellow (Yellow); Urine Protein, UAD Negative (Negative); Urine Urobilinogen Normal (Negative); Urine WBC <1 /hpf (0 - 5)
[2024-01-31] MEDS: FUROSEMIDE 100 MG/10ML VIAL IV ONE (21:58)
[2024-01-31 22:10] VITALS: TEMP 98
[2024-01-31 23:13] VITALS: BP 118/60; PULSE 76; RESP 18; O2SAT 99
== END 2024-01-31 23:13 | disposition home or self-care (01) ==
LOC: ER 14:22
DX: R06.00 Dyspnea, unspecified (principal); R07.89 Other chest pain; I10 Essential (primary) hypertension; E11.9 Type 2 diabetes mellitus without complications; J44.9 Chronic obstructive pulmonary disease, unspecified; E78.5 Hyperlipidemia, unspecified; M79.7 Fibromyalgia; Z98.890 Other specified postprocedural states
CPT/HCPCS: 36415; 71045; 80053; 81001; 82962; 83880; 84484; 85025; 85610; 85730; 93005; 96374; 99285; J1940

== ENCOUNTER → 2024-02-03 | Outpatient (CLI) | payer OTHER, MEDICAID ==
[2024-02-03 10:49] LABS: Base Excess 4.1 mmol/L (-2.0-3.0)
== END | disposition home or self-care (01) ==
LOC: RT 10:18
PROVIDERS: ATTEND Internal Medicine
DX: R79.81 Abnormal blood-gas level (principal)
CPT/HCPCS: 36600; 82805

== ENCOUNTER → 2024-02-24 | Outpatient (CLI) | payer OTHER, MEDICARE, MEDICAID | END | disposition home or self-care (01) | LOC: XYW 13:19 | PROVIDERS: ATTEND Student in an Organized Health Care Education/Training Program | DX: I08.8 Other rheumatic multiple valve diseases (principal); R07.9 Chest pain, unspecified | CPT/HCPCS: 93306 ==

== ENCOUNTER → 2024-03-12 | Outpatient (CLI) | payer OTHER, MEDICAID ==
[2024-03-12 09:59] LABS: Alanine Aminotransferase 12 U/L (7-40); Albumin 4.3 g/dL (3.2-4.8); Alkaline Phosphatase 62 U/L (46-116); Anion Gap 6 (5-15); Aspartate Aminotransferase 16 U/L (13-40); BUN/Creatinine Ratio 15.7 (10.0-20.0); Bilirubin, Total 0.3 mg/dL (0.2-1.0); Blood Urea Nitrogen 40 mg/dL (9-23); Calcium 10.1 mg/dL (8.7-10.4); Carbon Dioxide 28 mmol/L (20-31); Chloride 102 mmol/L (98-107); Cholesterol 107 mg/dL (< 200); Glucose 286 mg/dL (74-106); HDL Cholesterol 45 mg/dL (40-59); LDL Cholesterol 46 mg/dL (< 100); Potassium 4.1 mmol/L (3.5-5.1); Sodium 136 mmol/L (136-145); Triglycerides 116 mg/dL (< 150)
[2024-03-12 10:06] LABS: Basophils # (auto) 0 10 ^3/uL (0-0.2); Basophils % (auto) 0.7 % (0.0-2.0); Eosinophils # (auto) 0.2 10 ^3/uL (0-0.8); Eosinophils % (auto) 3.8 % (0.0-7.0); Hematocrit 32.6 % (36.0-46.0); Hemoglobin 10.8 g/dL (12.2-16.2); Lymphocytes % (auto) 16.9 % (10.0-50.0); Mean Corpuscular Hemoglobin 28.6 pg (28.0-32.0); Mean Corpuscular Hgb Conc. 33.2 g/dL (32.0-36.0); Mean Corpuscular Volume 86.3 fL (80.0-100.0); Monocytes # (auto) 0.4 10 ^3/uL (0-1.3); Neutrophils # (auto) 4.3 10 ^3/uL (1.6-8.6); Neutrophils % (auto) 72.6 % (37.0-80.0); Platelet Count (auto) 346 10^3/uL (140-450); Red Blood Cells 3.77 10^6/uL (4.0-5.20); Red Cell Distribution Width 15.4 % (11.8-14.3); White Blood Cell 5.9 10^3/uL (4.4-10.8)
== END | disposition home or self-care (01) ==
LOC: LAB 08:40
PROVIDERS: ATTEND Internal Medicine
DX: I13.0 Hypertensive heart and chronic kidney disease with heart failure and stage 1 through stage 4 chronic kidney disease, or unspecified chronic kidney disease (principal); I50.9 Heart failure, unspecified; N18.2 Chronic kidney disease, stage 2 (mild); E83.52 Hypercalcemia; J44.9 Chronic obstructive pulmonary disease, unspecified; R06.02 Shortness of breath
CPT/HCPCS: 36415; 80053; 80061; 83036; 85025

== ENCOUNTER → 2024-03-12 | Outpatient (CLI) | payer OTHER, MEDICAID ==
[~2024-03-12] VITALS: Ht 157.5 cm; Wt 84.8 kg
[2024-03-12] MEDS: ADENOSINE 71 MG in GIVE UN-DILUTED 0 ML IV STA (11:21)
== END | disposition home or self-care (01) ==
LOC: XYW 09:01
PROVIDERS: ATTEND Student in an Organized Health Care Education/Training Program
DX: R06.02 Shortness of breath (principal)
CPT/HCPCS: 93017; J0153

== ENCOUNTER 2024-03-29 15:00 | Emergency (ER) | payer OTHER, MEDICAID ==
[~2024-03-29] VITALS: Ht 154.9 cm; Wt 61.3 kg
--- NOTE | 2024-03-29 15:41 | DVH ---
CHEST RADIOGRAPH Indication: CHEST PAIN Technique: Single frontal view of the chest was obtained COMPARISON: XY CHEST PORTABLE on DOS: 01/31/24, XY CHEST XRAY 1 VIEW on DOS: 04/18/23, XY CHEST PORTAB LE on DOS: 01/19/23 FINDINGS: Lines and Tubes: None Lungs: Multifocal airspace disease Pleura: No effusion. No pneumothorax. Cardiomediastinal contours: Cardiomegaly Bones: Unremarkable IMPRESSION: Multifocal airspace disease
--- NOTE | 2024-03-29 15:57 | DVH ---
Exam: CT HEAD WITHOUT CONTRAST History: Altered mental status Technique: [address] images through the posterior fossa and the supratentorial compart ment were acquired without contrast and imaged using soft tissue and bone algorithms. RADIATION DOSE: DLP 884.63 mGy.cm; CTDI vol 48.87 mGy. Comparison: CT HEAD WITHOUT CONTRAST on DOS: 01/18/23, CT HEAD WITHOUT CONTRAST on DOS: 12/20/22, CT LS SPINE WO CONTRAST on DOS: 12/05/22 Findings: There is no evidence of an intracranial hemorrhage, acute large vessel infarct, mass effect, or midli ne shift. Mild to moderate calcification of the carotid siphons. The calvarium, orbits, paranasal sinuses, sella, middle ears, and mastoids are unremarkable. The superficial soft tissues are within normal limits. Impression: 1. No acute intracranial abnormality.
--- NOTE | 2024-03-29 16:02 | ECG ---
[facility] Test Date: 2024-03-29 Test Time: 15:08:54 Pat Name: JAROD MACHUCA Department: ED Room: Gender: F Manager Office: [place] : 1955 Requested By: SHANIQUE LANGLEY Order Number: [id number] Reading MD: Boris Johnson Measurements Intervals Hurley Rate: 90 P: 128 TX: 180 QRS: 184 QRSD: 170 T: 26 QT: 453 QTc: 555 Interpretive Statements Sinus rhythm Nonspecific intraventricular conduction delay Lateral infarct, acute (LAD) Anterior infarct, old Baseline wander in lead(s) I,aVL Electronically Signed On 03-30-2024 17:45:29 PST by Boris Johnson Please click the below link to view image of tracing.
[2024-03-29 16:19] LABS: Basophils # (auto) 0.1 10 ^3/uL (0-0.2); Basophils % (auto) 0.7 % (0.0-2.0); Eosinophils # (auto) 0.2 10 ^3/uL (0-0.8); Eosinophils % (auto) 2.8 % (0.0-7.0); Hematocrit 35.5 % (36.0-46.0); Hemoglobin 11.5 g/dL (12.2-16.2); Lymphocytes # (auto) 1.1 10 ^3/uL (0.4-5.4); Mean Corpuscular Hemoglobin 27.9 pg (28.0-32.0); Mean Corpuscular Hgb Conc. 32.3 g/dL (32.0-36.0); Mean Corpuscular Volume 86.2 fL (80.0-100.0); Monocytes # (auto) 0.5 10 ^3/uL (0-1.3); Monocytes % (auto) 6.5 % (0.0-12.0); Neutrophils # (auto) 5.9 10 ^3/uL (1.6-8.6); Platelet Count (auto) 311 10^3/uL (140-450); Red Blood Cells 4.12 10^6/uL (4.0-5.20); Red Cell Distribution Width 15.3 % (11.8-14.3); White Blood Cell 7.7 10^3/uL (4.4-10.8)
[2024-03-29 16:31] LABS: INR 1.18 (0.9-1.15); Partial Thromboplastin Time 24.8 SEC (24.5-34.5); Prothrombin Time 12.4 sec (9.3-11.8)
[2024-03-29 16:36] LABS: Alanine Aminotransferase 17 U/L (7-40); Alkaline Phosphatase 64 U/L (46-116); Anion Gap 9 (5-15); Aspartate Aminotransferase 20 U/L (13-40); BUN/Creatinine Ratio 20.1 (10.0-20.0); Blood Urea Nitrogen 45 mg/dL (9-23); Calcium 10.4 mg/dL (8.7-10.4); Carbon Dioxide 26 mmol/L (20-31); Chloride 101 mmol/L (98-107); Glucose 243 mg/dL (74-106); Magnesium 2.2 mg/dL (1.6-2.6); Sodium 136 mmol/L (136-145)
[2024-03-29 16:37] LABS: Albumin 4.2 g/dL (3.2-4.8); Bilirubin, Total 0.7 mg/dL (0.2-1.0); Total Protein 6.6 g/dL (5.7-8.2)
[2024-03-29 17:40] LABS: Urine Bacteria None Seen /hpf (None Seen)
[2024-03-29 17:58] LABS: Urine Blood Negative /uL (Negative); Urine Clarity Clear (Clear); Urine Color Light-Yellow (Yellow); Urine Protein, UAD Negative (Negative); Urine Specific Gravity 1.009 (1.001-1.035); Urine Urobilinogen Normal (Negative); Urine WBC 2 /hpf (0 - 5)
[2024-03-29] MEDS: traMADol HCL 50 MG TAB PO ONE (18:23)
--- NOTE | 2024-03-29 18:34 | ED.PDOC ---
HPI Comments This patient is a 68-year-old female who was brought in by EMS due to complaints of chest pain and upper abdominal pain that began earlier today and continued throughout. Patient describes it as a stabbing pain in her stomach that feels like it is a hole burning through her chest. Patient has a history of multiple comorbidities as well as extensive allergy concerns. Patient seems slightly altered at time of evaluation. Vital signs were stable on arrival. 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 Allergies: Coded Allergies: Egg-derived Products (Verified Allergy, Severe, 12/20/22) NSAIDs (Verified Allergy, Severe, 12/20/22) Oxycodone (Verified Allergy, Severe, 12/20/22) Banana (Verified Allergy, Intermediate, 12/20/22) Garlic (Verified Allergy, Intermediate, 12/20/22) Oatmeal (Verified Allergy, Intermediate, 12/20/22) Albuterol (Verified Allergy, Unknown, 01/18/23) Codeine (Verified Allergy, Unknown, 12/05/22) Donepezil (Verified Allergy, Unknown, 01/18/23) Insulin Glargine (Verified Allergy, Unknown, 12/05/22) Levetiracetam (Verified Allergy, Unknown, 01/18/23) Lidocaine (Verified Allergy, Unknown, 12/05/22) Penicillins (Verified Allergy, Unknown, 12/05/22) Sulfa Antibiotics (Verified Allergy, Unknown, 12/05/22) Onion (Verified Adverse Reaction, Intermediate, 12/20/22) Uncoded Allergies: CHICKEN (Allergy, Severe, 12/20/22) DAIRY (Allergy, Severe, 12/20/22) LEAFY GREENS (Allergy, Severe, 12/20/22) PORK (Allergy, Severe, 12/20/22) BEEF (Allergy, Intermediate, 12/20/22) WHEAT FLOUR (Allergy, Intermediate, 12/20/22) WHOLE GRAIN (Allergy, Intermediate, 12/20/22) EGGS (Allergy, Unknown, 07/07/22) LETTUCE (Adverse Reaction, Intermediate, 12/20/22) TOMATOES (Adverse Reaction, Intermediate, 12/20/22) potato (Adverse Reaction, Intermediate, 03/12/24) per patient when she eats potatoes all of her joints swell and become painful Home Meds Active Scripts Ipratropium Opal Hfa (Atrovent Hfa) 17 Mcg Aer, 2 PUFF INH QID, #12.9 GRAMS 5 Refills Prov:LILIANA BECERRA DO 01/06/23 Reported Medications Amoxicillin & Pot Clavulanate (Augmentin) 500 Mg Tab, 500 MG PO BID for bilateral ear infection/sinus, #28 TAB 04/19/23 Feverfew (Tanacetum Parthenium (Feverfew) 380 Mg Cap, 380 MG PO DAILY, CAP 04/18/23 Acetazolamide (Acetazolamide) 250 Mg Tab, 500 MG PO Q6HR, MG 0 Refills 04/18/23 Clopidogrel Bisulfate (CLOPIDOGREL) 75 Mg Tab, 75 MG PO DAILY, MG 04/18/23 Tramadol Hcl (Tramadol Hcl) 50 Mg Tab, 50 MG PO Q8HP, MG 04/18/23 Apixaban Base (ELIQUIS) 2.5 Mg Tab, 2.5 MG PO BID, TAB 04/18/23 Baclofen (Baclofen) 10 Mg Tab, 10 MG PO Q12HR, MG 04/18/23 Pancrelipase (Lipase-Protease- (CREON) 36,000 Unt Cap, 45460 UNT PO DAILY, CAP 8 Refills Take 2 capsules four times daily with meals and 1 capsule with every snack 04/18/23 Amitriptyline Hcl (Amitriptyline Hcl) 25 Mg Tab, 50 MG PO HS, MG 01/18/23 Lorazepam (Lorazepam) 1 Mg Tab, 0.5 TAB PO TID, #90 TAB 01/18/23 Methocarbamol (Methocarbamol) 500 Mg Tab, 500 MG PO BID for 30 Days, MG 01/18/23 Gabapentin (Gabapentin) 300 Mg Cap, 1 CAP PO TID 01/17/23 Ezetimibe (Zetia) 10 Mg Tab, 10 MG PO DAILY, TAB 12/21/22 Venlafaxine Hcl (Venlafaxine Hcl Er) 150 Mg Cap, 1 CAP PO DAILY 12/20/22 Atogepant (Qulipta) 60 Mg Tab, 1 TAB PO DAILY 12/20/22 Levetiracetam (Levetiracetam) 500 Mg Tab, 1 TAB PO BID 12/20/22 Donepezil Hydrochloride (DONEPEZIL HCL) 5 Mg Tab, 1 TAB PO DAILY 12/20/22 Folic Acid (Folic Acid) 1 Mg Tab, 1 TAB PO DAILY 12/20/22 Montelukast Sodium (MONTELUKAST SODIUM) 10 Mg Tab, 1 TAB PO DAILY 12/20/22 Febuxostat (Febuxostat) 40 Mg Tab, 1 TAB PO DAILY 12/20/22 Hydroxychloroquine Sulfate (Hydroxychloroquine Sulfat) 200 Mg Tab, 1 TAB PO DAILY 12/20/22 Fenofibrate (Fenofibrate Micronized) 134 Mg Cap, 1 CAP PO DAILY 12/20/22 Information Source: Patient, Emergency Med Personnel Mode of Arrival: EMS Severity: Moderate Timing: Hours Duration: Since onset Prehospital treatment: 12 Lead EKG Location: Substernal Radiation: Back Quality: Sharp, Stabbing, Crushing Onset: At Rest Cardiac Risk Factors: HTN, Diabetes PE Risk Factors: None History of: Similar pain in past Associated Signs and Symptoms: Palpitations Past Medical History PAST MEDICAL HISTORY: Asthma, COPD, DM, Gout, High Lipids, Hypotension 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: Other Family History Family History: Reviewed,noncontributory to illness, Family hx of DM, Family hx of heart aliza Social History Smoker: Non-Smoker Alcohol: Denies ETOH Use Drugs: Denies Drug Use Lives In: Home Constitutional: denies: chills, diaphoresis, fatigue, fever, malaise, sweats, weakness, others EENTM: denies: blurred vision, double vision, ear bleeding, ear discharge, ear drainage, ear pain, ear ringing, eye pain, eye redness, hearing loss, mouth pain, mouth swelling, nasal discharge, nose bleeding, nose congestion, nose pain, photophobia, tearing, throat pain, throat swelling, voice changes, others Respiratory: denies: cough, hemoptysis, orthopnea, SOB at rest, shortness of breath, SOB with excertion, stridor, wheezing, others Cardiovascular: reports: chest pain; denies: dizzy spells, diaphoresis, Dyspnea on exertion, edema, irregular heart beat, left arm pain, lightheadedness, palpitations, PND, syncope, others Gastrointestinal: reports: abdominal pain; denies: abdomen distended, blood streaked bowels, constipated, diarrhea, dysphagia, difficulty swallowing, hematemesis, melena, nausea, poor appetite, poor fluid intake, rectal bleeding, rectal pain, vomiting, others Genitourinary: denies: abnormal vagina bleeding, burning, dyspareunia, dysuria, flank pain, frequency, hematuria, incontinence, pain, , vagina discharge, urgency, others Neurological: denies: dizziness, fainting, headache, left sided numbness, left sided weakness, numbness, paresthesia, pre-existing deficit, right sided numbness, right sided weakness, seizure, speech problems, tingling, tremors, weakness, others Musculoskeletal: denies: back pain, gout, joint pain, joint swelling, muscle pain, muscle stiffness, neck pain, others Integumetry: denies: bruises, change in color, change in hair/nails, dryness, laceration, lesions, lumps, rash, wounds, others Allergic/Immunocompromised: denies: Difficulty Healing, Frequent Infections, Hives, Itching, others Hematologic/Lymphatic: denies: anemia, blood clots, easy bleeding, easy bruising, swollen glands, others Endocrine: denies: excessive hunger, excessive sweating, excessive thirst, excessive urination, flushing, intolerance to cold, intolerance to heat, unexplained weight gain, unexplained weight loss, others Psychiatric: denies: anxiety, bipolar disorder, depression, hopeless, panic disorder, schizophrenia, sleepless, suicidal, others Unable to Obtain due to: Altered Mental Status Physical Exam General Appearance: Moderate Distress (Patient appears as a moderately ill 60-year-old female), Normal HEENT: Normal ENT Inspection, Pharynx Normal, TMs Normal Neck: Full Range of Motion, Non-Tender, Normal, Normal Inspection Respiratory: Lungs Clear, No Accessory Muscle Use, No Respiratory Distress, Normal Breath Sounds, Other (Auscultation bilateral lung marshall was unremarkable.) Cardiovascular: No Edema, No JVD, No Murmur, No Gallop, Normal Peripheral Pulses, Regular Rate/Rhythm, Other (Unremarkable cardiac evaluation.) Breast Exam: Deferred Gastrointestinal: No Organomegaly, No Pulsatile Mass, Normal Bowel Sounds, Soft, Other (Patient complains of upper GI/lower chest pain that has mildly exacerbate on palpation. No pulsatile masses.) Genitalia: Deferred Pelvic: Deferred Rectal: Deferred Extremities: No calf tenderness, Normal capillary refill, Normal inspection, Normal range of motion, Non-tender, No pedal edema Neurologic: Depressed Affect, No Sensory Deficits Cerebellar Function: Normal Reflexes: Normal Skin: Dry, Normal Color, Warm Lymphatic: No Adenopathy Was a procedure done? Was a procedure done?: No CP Differential Dx Differential Diagnosis: A-fib, Angina, Anxiety / Panic Attack, Atrial Dysrhythmia, AV Block 1st Degree, VA, PAC's Differential Diagnosis: CHF Differential Diagnosis: Pneumonia X-Ray, Labs, Meds, VS Vital Signs Date Time Temp Pulse Resp B/P (MAP) Pulse Ox O2 Delivery O2 Flow Rate FiO2 03/29/24 16:00 85 03/29/24 15:10 98.5 90 18 116/58 (77) 95 03/29/24 15:08 90 Lab Test 03/29/24 17:36 03/29/24 16:38 03/29/24 15:51 Range/Units Urine Color Light-yellow Yellow Urine Clarity Clear Clear Urine pH 7.0 5.0-9.0 Urine Specific Leroy 1.009 1.001-1.035 Urine Protein Negative Negative Urine Ketones Negative Negative Urine Blood Negative Negative /uL Urine Nitrite Negative Negative Urine Bilirubin Negative Negative Urine Urobilinogen Normal Negative mg/dL Urine Leukocyte Esterase Negative Negative /uL Urine RBC 1 0 - 4 /hpf Urine WBC 2 0 - 5 /hpf Urine Squamous Epithelial Cells Few <5 /hpf Urine Bacteria None seen None Seen /hpf Urine Glucose Trace Normal mg/dL Troponin I High Sensitivity 31 29 </=34 ng/L White Blood Count 7.7 4.4-10.8 10^3/uL Red Blood Count 4.12 4.0-5.20 10^6/uL Hemoglobin 11.5 L 12.2-16.2 g/dL Hematocrit 35.5 L 36.0-46.0 % Mean Corpuscular Volume 86.2 80.0-100.0 fL Mean Corpuscular Hemoglobin 27.9 L 28.0-32.0 pg Mean Corpuscular Hemoglobin Concent 32.3 32.0-36.0 g/dL Red Cell Distribution Width 15.3 H 11.8-14.3 % Platelet Count 311 140-450 10^3/uL Mean Platelet Volume 8.0 6.9-10.8 fL Neutrophils (%) (Auto) 76.0 37.0-80.0 % Lymphocytes (%) (Auto) 14.0 10.0-50.0 % Monocytes (%) (Auto) 6.5 0.0-12.0 % Eosinophils (%) (Auto) 2.8 0.0-7.0 % Basophils (%) (Auto) 0.7 0.0-2.0 % Neutrophils # (Auto) 5.9 1.6-8.6 10 ^3/uL Lymphocytes # (Auto) 1.1 0.4-5.4 10 ^3/uL Monocytes # (Auto) 0.5 0-1.3 10 ^3/uL Eosinophils # (Auto) 0.2 0-0.8 10 ^3/uL Basophils # (Auto) 0.1 0-0.2 10 ^3/uL Nucleated Red Blood Cells 0.0 % Prothrombin Time 12.4 H 9.3-11.8 sec Prothrombin Time INR 1.18 H 0.9-1.15 Activated Partial Thromboplast Time 24.8 24.5-34.5 SEC Sodium Level 136 136-145 mmol/L Potassium Level 4.0 3.5-5.1 mmol/L Chloride Level 101 98-107 mmol/L Carbon Dioxide Level 26 20-31 mmol/L Anion Gap 9 5-15 Blood Urea Nitrogen 45 H 9-23 mg/dL Creatinine 2.24 H 0.550-1.02 mg/dL Glomerular Filtration Rate Calc 23 >90 mL/min BUN/Creatinine Ratio 20.1 H 10.0-20.0 Serum Glucose 243 H 74-106 mg/dL Calcium Level 10.4 8.7-10.4 mg/dL Magnesium Level 2.2 1.6-2.6 mg/dL Total Bilirubin 0.7 0.2-1.0 mg/dL Aspartate Amino Transferase (AST) 20 13-40 U/L Alanine Aminotransferase (ALT) 17 7-40 U/L Alkaline Phosphatase 64 46-116 U/L B-Type Natriuretic Peptide 1636.84 0-100 pg/mL Total Protein 6.6 5.7-8.2 g/dL Albumin 4.2 3.2-4.8 g/dL Current Medications Medications (Trade) Dose Ordered Sig/Diana Route Start Time Stop Time Status Last Admin Tramadol HCl (Ultram) 50 mg ONCE ONCE PO 03/29/24 15:30 03/29/24 15:31 DC 03/29/24 18:23 X-Ray, Labs, Meds, VS Comment All studies performed the ED were evaluated by me personally. Patient's labor atories revealed a anemia, acute renal injury, acute CHF exacerbation as well as a hyperglycemic state. EKG revealed a sinus rhythm with a nonspecific intraventricular conduction delay as well as a history of a lateral infarct and anterior infarct. Rate was 90 with a DE interval of 180 and a QT interval of 435. Cardiology was contacted for evaluation to rule out any acute STEMI. Cardiology returned a diagnosis of a first-degree AV block. CT of the head was unremarkable for any intracranial process or mass. Chest x-ray revealed a history of chronic pulmonary concerns. Patient will be admitted to address her acute CHF exacerbation as well as blood sugar and renal concerns. Dr. Wagner was in the ED and is familiar with the patient. Patient was resistant to being admitted and therefore, Dr. Wagner advised given a dose of Lasix and a GI cocktail prior to discharge and sending the patient home with a prescription for Mylanta and Lasix. Patient has been advised by Dr. Wagner to follow up with her polymerization engineer for continued evaluation. Time of 1ST Reevaluation: 18:47 Reevaluation 1ST: Improved Consultation: PCP, Cardiology Patient Education/Counseling: Diagnosis, Treatment Family Education/Counseling: Diagnosis, Treatment Departure 1 Departure Time of Disposition: 18:32 Impression: Primary Impression: Acute exacerbation of CHF (congestive heart failure) Additional Impressions: Acute renal injury Hyperglycemia Anemia Disposition: 01 HOME / SELF CARE / HOMELESS Condition: Stable Additional Instructions: Advised patient utilize medication as directed and follow up with her polymerization engineer tomorrow for continued evaluation. Patient has been advised to just go to his office as a walk-in. e-Prescriptions Alum & Mag Hydrox-Simethicone (Mylanta Maximum Strength 400-400-40 mg/5Ml) 1 Ailyn Ailyn 1 AILYN PO BIDP PRN, #120 ML Prov: SHANIQUE LANGLEY PAC 03/29/24 Furosemide (Lasix) 40 Mg Tab 40 MG PO BID, #60 TAB Prov: SHANIQUE LANGLEY PAC 03/29/24 Discharged With: Self, Relative Critical Care Note Critical Care Time?: No Stability Stability form required: No Heart Score Heart Score: Heart Score Response (Comments) Value History Slightly Suspicious 0 EKG Repolarization Disturb 1 Age >65 2 Risk Factors 1 or 2 risk factors 1 Troponin Normal limit 0 Total 4 SHANIQUE LANGLEY PAC Mar 29, 2024 18:34
[2024-03-29 18:45] VITALS: BP 141/78; PULSE 90; RESP 19; TEMP 98.2; O2SAT 100
[2024-03-29] MEDS ORDERED: FURO1TAB31 PO (18:49)
[2024-03-29] MEDS ORDERED: ALUM1SUS16 PO (18:49)
[2024-03-29] MEDS: DONNATAL 5ml ORAL Elix (BELLADONNA ALK-PHENOBARB) PO ONE (18:55)
[2024-03-29] MEDS: MAALOX PLUS or MAALOX 30 ML PO ONE (18:55)
[2024-03-29] MEDS: FUROSEMIDE 40 MG/4 ML VIAL IV ONE (19:02)
--- NOTE | 2024-03-29 19:12 | ECG ---
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
== END 2024-03-29 19:31 | disposition home or self-care (01) ==
LOC: ER 15:00 → EDBD 15:00 → ER 19:30
DX: I50.9 Heart failure, unspecified (principal); D64.9 Anemia, unspecified; E11.65 Type 2 diabetes mellitus with hyperglycemia; N17.9 Acute kidney failure, unspecified; J44.9 Chronic obstructive pulmonary disease, unspecified; M10.9 Gout, unspecified; E78.5 Hyperlipidemia, unspecified; R51.9 Headache, unspecified; Z98.890 Other specified postprocedural states; Z88.0 Allergy status to penicillin; Z88.2 Allergy status to sulfonamides; Z88.5 Allergy status to narcotic agent; Z88.6 Allergy status to analgesic agent; Z88.8 Allergy status to other drugs, medicaments and biological substances; Z79.01 Long term (current) use of anticoagulants; Z79.02 Long term (current) use of antithrombotics/antiplatelets; Z79.899 Other long term (current) drug therapy; Z91.012 Allergy to eggs; Z91.018 Allergy to other foods
CPT/HCPCS: 36415; 70450; 71045; 80053; 81001; 83735; 83880; 84484; 85025; 85610; 85730; 93005; 96374; 99285; J1940

== ENCOUNTER → 2024-04-13 | Outpatient (CLI) | payer OTHER, MEDICAID ==
[~2024-04-13] MED LIST changes: +ALUM1SUS16 PO; +FURO1TAB31 PO
[2024-04-13 16:14] LABS: Basophils # (auto) 0.1 10 ^3/uL (0-0.2); Basophils % (auto) 0.9 % (0.0-2.0); Eosinophils # (auto) 0.3 10 ^3/uL (0-0.8); Eosinophils % (auto) 3.8 % (0.0-7.0); Hematocrit 39.3 % (36.0-46.0); Lymphocytes # (auto) 1.8 10 ^3/uL (0.4-5.4); Mean Corpuscular Hemoglobin 27.9 pg (28.0-32.0); Mean Corpuscular Hgb Conc. 33.1 g/dL (32.0-36.0); Mean Corpuscular Volume 84.2 fL (80.0-100.0); Monocytes # (auto) 0.6 10 ^3/uL (0-1.3); Monocytes % (auto) 7.9 % (0.0-12.0); Neutrophils # (auto) 4.4 10 ^3/uL (1.6-8.6); Neutrophils % (auto) 62.4 % (37.0-80.0); Platelet Count (auto) 355 10^3/uL (140-450); Red Blood Cells 4.66 10^6/uL (4.0-5.20); Red Cell Distribution Width 15.9 % (11.8-14.3); White Blood Cell 7.1 10^3/uL (4.4-10.8)
[2024-04-13 16:31] LABS: INR 1.11 (0.9-1.15); Partial Thromboplastin Time 27.1 SEC (24.5-34.5); Prothrombin Time 11.7 sec (9.3-11.8)
[2024-04-13 16:47] LABS: Alanine Aminotransferase 12 U/L (7-40); Albumin 4.4 g/dL (3.2-4.8); Alkaline Phosphatase 71 U/L (46-116); Anion Gap 9 (5-15); Aspartate Aminotransferase 14 U/L (13-40); BUN/Creatinine Ratio 24.1 (10.0-20.0); Carbon Dioxide 26 mmol/L (20-31); Chloride 98 mmol/L (98-107); Potassium 3.7 mmol/L (3.5-5.1)
[2024-04-13 16:48] LABS: Blood Urea Nitrogen 49 mg/dL (9-23); Calcium 10.8 mg/dL (8.7-10.4); Glucose 210 mg/dL (74-106); Sodium 133 mmol/L (136-145)
[2024-04-13 16:49] LABS: Bilirubin, Total 0.4 mg/dL (0.2-1.0); Total Protein 7.4 g/dL (5.7-8.2)
== END | disposition home or self-care (01) ==
LOC: LAB 15:20
PROVIDERS: ATTEND Student in an Organized Health Care Education/Training Program
DX: Z01.812 Encounter for preprocedural laboratory examination (principal)
CPT/HCPCS: 36415; 80053; 85025; 85610; 85730

== ENCOUNTER → 2024-07-12 | Outpatient (CLI) | payer OTHER, MEDICAID ==
[~2024-07-12] MED LIST changes: -ALUM1SUS16 PO; -FURO1TAB31 PO; -IPRIH INH
[2024-07-12 11:26] LABS: Urine Bacteria None Seen /hpf (None Seen)
[2024-07-12 11:45] LABS: Basophils # (auto) 0.1 10 ^3/uL (0-0.2); Basophils % (auto) 1.1 % (0.0-2.0); Eosinophils # (auto) 0.2 10 ^3/uL (0-0.8); Eosinophils % (auto) 2.8 % (0.0-7.0); Hematocrit 35.9 % (36.0-46.0); Hemoglobin 12.2 g/dL (12.2-16.2); Lymphocytes # (auto) 1.3 10 ^3/uL (0.4-5.4); Lymphocytes % (auto) 17.8 % (10.0-50.0); Mean Corpuscular Hemoglobin 29.3 pg (28.0-32.0); Mean Corpuscular Hgb Conc. 34.1 g/dL (32.0-36.0); Mean Corpuscular Volume 85.9 fL (80.0-100.0); Monocytes # (auto) 0.5 10 ^3/uL (0-1.3); Monocytes % (auto) 6.9 % (0.0-12.0); Neutrophils # (auto) 5.1 10 ^3/uL (1.6-8.6); Neutrophils % (auto) 71.4 % (37.0-80.0); Platelet Count (auto) 298 10^3/uL (140-450); Red Blood Cells 4.18 10^6/uL (4.0-5.20); Red Cell Distribution Width 15.9 % (11.8-14.3); White Blood Cell 7.2 10^3/uL (4.4-10.8)
[2024-07-12 11:48] LABS: Urine Blood Negative /uL (Negative); Urine Clarity Clear (Clear); Urine Color Light-Yellow (Yellow); Urine Protein, UAD Negative (Negative); Urine Specific Gravity 1.007 (1.001-1.035); Urine Squamous Epithelial Cell FEW /hpf (<5); Urine Urobilinogen Normal (Negative); Urine WBC < 1 /HPF (0-5); Urine pH 6.5 (5.0-9.0)
[2024-07-12 12:26] LABS: Creatinine, Urine 21.43 mg/dL (30.0-125.0)
[2024-07-12 12:30] LABS: Alanine Aminotransferase 15 U/L (7-40); Albumin 4.8 g/dL (3.2-4.8); Alkaline Phosphatase 75 U/L (46-116); Anion Gap 6 (5-15); Aspartate Aminotransferase 20 U/L (13-40); BUN/Creatinine Ratio 24.4 (10.0-20.0); Carbon Dioxide 29 mmol/L (20-31); Chloride 101 mmol/L (98-107); Cholesterol 132 mg/dL (< 200); GFR African American 32 mL/min; GFR Non-African American 27 mL/min; LDL Cholesterol 60 mg/dL (< 100); Potassium 3.9 mmol/L (3.5-5.1); Sodium 136 mmol/L (136-145); Total Protein 7.6 g/dL (5.7-8.2)
[2024-07-12 12:31] LABS: HDL Cholesterol 47 mg/dL (40-59); Phosphorus 2.9 mg/dL (2.4-5.1)
[2024-07-12 12:32] LABS: Blood Urea Nitrogen 48 mg/dL (9-23); Calcium 10.7 mg/dL (8.7-10.4); Glucose 166 mg/dL (74-106); Triglycerides 169 mg/dL (< 150)
[2024-07-12 12:46] LABS: Bilirubin, Total 0.3 mg/dL (0.2-1.0)
[2024-07-12 13:50] LABS: Uric Acid 5.4 mg/dL (3.1-7.8)
== END | disposition home or self-care (01) ==
LOC: LAB 10:55
PROVIDERS: ATTEND Internal Medicine
DX: E11.22 Type 2 diabetes mellitus with diabetic chronic kidney disease (principal); E11.21 Type 2 diabetes mellitus with diabetic nephropathy; N18.5 Chronic kidney disease, stage 5; N17.9 Acute kidney failure, unspecified; I25.9 Chronic ischemic heart disease, unspecified; N39.0 Urinary tract infection, site not specified; E21.3 Hyperparathyroidism, unspecified; E55.9 Vitamin D deficiency, unspecified; M10.9 Gout, unspecified; R80.9 Proteinuria, unspecified; D63.1 Anemia in chronic kidney disease; Z00.01 Encounter for general adult medical examination with abnormal findings
CPT/HCPCS: 36415; 80053; 80061; 80069; 81001; 82043; 82306; 82570; 83036; 83970; 84439; 84443; 84550; 85025; 86431

== ENCOUNTER → 2024-07-19 | Outpatient (CLI) | payer OTHER, MEDICAID | END | disposition home or self-care (01) | LOC: LAB 13:21 | PROVIDERS: ATTEND Internal Medicine | DX: Z00.01 Encounter for general adult medical examination with abnormal findings (principal); E11.22 Type 2 diabetes mellitus with diabetic chronic kidney disease; N18.5 Chronic kidney disease, stage 5; N17.9 Acute kidney failure, unspecified; I25.9 Chronic ischemic heart disease, unspecified; E83.50 Unspecified disorder of calcium metabolism | CPT/HCPCS: 82274 ==

== ENCOUNTER → 2024-08-29 | Outpatient (CLI) | payer OTHER, MEDICAID ==
[2024-08-29 13:38] LABS: Urine Bacteria None Seen /hpf (None Seen)
[2024-08-29 14:27] LABS: Urine Blood Negative /uL (Negative); Urine Clarity Clear (Clear); Urine Color Yellow (Yellow); Urine Protein, UAD Negative (Negative); Urine Specific Gravity 1.012 (1.001-1.035); Urine Squamous Epithelial Cell FEW /hpf (<5); Urine Urobilinogen Normal (Negative); Urine WBC 7 /HPF (0-5); Urine pH 6.5 (5.0-9.0)
== END | disposition home or self-care (01) ==
LOC: LAB 13:33
PROVIDERS: ATTEND Internal Medicine
DX: N39.0 Urinary tract infection, site not specified (principal)
CPT/HCPCS: 81001; 87086

== ENCOUNTER → 2024-09-12 | Outpatient (CLI) | payer OTHER, MEDICAID ==
[2024-09-12 15:43] LABS: Urine Bacteria None Seen /hpf (None Seen)
[2024-09-12 15:59] LABS: Potassium 3.6 mmol/L (3.5-5.1)
[2024-09-12 16:01] LABS: Urine Blood Negative /uL (Negative); Urine Clarity Clear (Clear); Urine Color Yellow (Yellow); Urine Protein, UAD Negative (Negative); Urine Specific Gravity 1.009 (1.001-1.035); Urine Squamous Epithelial Cell FEW /hpf (<5); Urine Urobilinogen Normal (Negative); Urine WBC 1 /HPF (0-5)
[2024-09-12 16:04] LABS: Basophils # (auto) 0 10 ^3/uL (0-0.2); Basophils % (auto) 0.7 % (0.0-2.0); Eosinophils # (auto) 0.3 10 ^3/uL (0-0.8); Eosinophils % (auto) 4.9 % (0.0-7.0); Hematocrit 38.6 % (36.0-46.0); Hemoglobin 13.1 g/dL (12.2-16.2); Lymphocytes # (auto) 1.2 10 ^3/uL (0.4-5.4); Lymphocytes % (auto) 21.6 % (10.0-50.0); Mean Corpuscular Hgb Conc. 33.9 g/dL (32.0-36.0); Mean Corpuscular Volume 85.7 fL (80.0-100.0); Monocytes # (auto) 0.5 10 ^3/uL (0-1.3); Monocytes % (auto) 8.1 % (0.0-12.0); Neutrophils # (auto) 3.6 10 ^3/uL (1.6-8.6); Neutrophils % (auto) 64.7 % (37.0-80.0); Platelet Count (auto) 292 10^3/uL (140-450); Red Cell Distribution Width 14.3 % (11.8-14.3); Uric Acid 5.8 mg/dL (3.1-7.8); White Blood Cell 5.6 10^3/uL (4.4-10.8)
[2024-09-12 16:05] LABS: BUN/Creatinine Ratio 25.6 (10.0-20.0)
[2024-09-12 16:07] LABS: Albumin 4.8 g/dL (3.2-4.8); Calcium 10.4 mg/dL (8.7-10.4); Phosphorus 3.4 mg/dL (2.4-5.1)
[2024-09-12 16:12] LABS: Creatinine, Urine 33.36 mg/dL (30.0-125.0); Urine Protein/Creatinine Ratio 0.18
[2024-09-12 16:15] LABS: Protein, Urine < 6.0 mg/dL (1-14)
== END | disposition home or self-care (01) ==
LOC: LAB 15:12
PROVIDERS: ATTEND Pathology Anatomic Pathology & Clinical Pathology
DX: E11.22 Type 2 diabetes mellitus with diabetic chronic kidney disease (principal); N18.30 Chronic kidney disease, stage 3 unspecified; N39.0 Urinary tract infection, site not specified; D63.1 Anemia in chronic kidney disease; R80.9 Proteinuria, unspecified; E21.3 Hyperparathyroidism, unspecified; M10.9 Gout, unspecified; E55.9 Vitamin D deficiency, unspecified
CPT/HCPCS: 36415; 80069; 81001; 82043; 82570; 83970; 84156; 84550; 85025

== ENCOUNTER 2025-03-13 14:48 | Outpatient (CLI) | payer OTHER, MEDICAID, MEDICARE ==
[2025-03-13 15:20] LABS: Urine Protein, UAD Negative (Negative)
== END 2025-03-13 17:00 | disposition home or self-care (01) ==
LOC: LAB 14:48
PROVIDERS: ATTEND Internal Medicine
DX: N39.0 Urinary tract infection, site not specified (principal)
CPT/HCPCS: 81001